=== PATIENT | male | born 1960 | race Caucasian/White ===

== ENCOUNTER 2023-03-20 09:21 | Inpatient (IN) | payer MEDICARE, SELFPAY ==
[2023-03-15 08:07] VITALS: BMI 32.0
[2023-03-20] VITALS (10 sets, daily range): BP systolic 125–166; BP diastolic 69–99; PULSE 68–97; RESP 10–19; TEMP 36.2–36.4; O2SAT 92–100; BMI 29.2
[2023-03-20] MEDS: LACTATED RINGERS 1,000 ML 42 ML IV ×2 (10:09→13:00)
[2023-03-20] MEDS: ACETAMINOPHEN 325 MG TABLET 975 MG PO (10:13)
[2023-03-20] MEDS: GABAPENTIN 300 MG CAPSULE PO (10:13)
--- NOTE | 2023-03-20 10:46 | PM.PREOP ---
Pre-operative Note COVID-19 Criteria for continued procedure: Expected advancement of disease process, Possibility delay results in more complex future surgery or treatment, Increased loss of function, Continuing or worsening of significant or severe pain, Deterioration of the patient's condition or overall health and Delay expected to result in less-positive ultimate med/surg outcome Interval Note History & Physical reviewed/Exam performed by Physician: Yes Changes to H&P: No
--- NOTE | 2023-03-20 11:16 | P.HP_ITS ---
History of Present Illness History of Present Illness Date Patient Seen: 03/20/23 Time Patient Seen: 10:30 Date of Onset of Symptoms: 02/24/21 Chief complaint: back pain, leg pain Narrative: Mr. Montesinos is a 62 yo M with chronic pain in his back radiating down his legs. His pain worsened over the last 2 years affecting his right leg more than left. He failed multiple conservative management with worsening pain. After discussing risks and benefits of surgery, patient elected to proceed with L4-S1 TLIF. [facility] Medical History Acid reflux Anxiety Martinez's esophagus COPD (chronic obstructive pulmonary disease) Eczema Hiatal hernia HLD (hyperlipidemia) HTN (hypertension) Pre-diabetes Sciatica Surgical History History of total left knee replacement Hx of knee surgery Hx of laminectomy Social History household members: children Smoking Status: Current every day smoker alcohol intake: former Meds Home Medications and Allergies Home Medications Medication Instructions Recorded Confirmed Type albuterol sulfate 90 mcg/actuation 2 puff inhalation Q4-6H PRN COPD 03/15/23 03/20/23 History aerosol inhaler atorvastatin 40 mg tablet 40 mg PO DAILY 03/15/23 03/20/23 History cyclobenzaprine 5 mg tablet 10 mg PO QAM 03/15/23 03/20/23 History gabapentin 600 mg tablet 600 mg PO DAILY 03/15/23 03/20/23 History hydroxyzine HCl 50 mg tablet 50 mg PO DAILY 03/15/23 03/20/23 History lisinopril 40 mg tablet 40 mg PO DAILY 03/15/23 03/20/23 History metformin 1,000 mg tablet,extended 2,000 mg PO DAILY 03/15/23 03/20/23 History release 24hr metoprolol succinate 100 mg 100 mg PO DAILY 03/15/23 03/20/23 History tablet,extended release 24 hr metoprolol succinate 50 mg 50 mg PO DAILY 03/15/23 03/20/23 History tablet,extended release 24 hr naproxen 500 mg tablet 500 mg PO DAILY 03/15/23 03/20/23 History pantoprazole 40 mg tablet,delayed 40 mg PO DAILY 03/15/23 03/20/23 History release sildenafil 50 mg tablet 100 mg PO DAILY PRN Sexual acitivty 03/15/23 03/20/23 History Allergies Allergy/AdvReac Type Severity Reaction Status Date / Time No Known Drug Allergies Allergy Verified 03/20/23 09:41 Review of Systems Review of Systems ROS: Yes All systems reviewed with the patient and are negative except as otherwise documented Exam Vital Signs (past 8 hours): - 03/20/23 10:08 Temperature 97.6 F Pulse Rate 82 Respiratory Rate 18 Blood Pressure 166/96 H Pulse Oximetry 100 Oxygen Delivery Method Room Air Oxygen Delivery Method Room Air Back/Spine/Pelvis Other: painful ROM, worst pain in lower lumbar with movement Neuro Other: + straight leg raise to RLE, sensibility decreased to bilateral L4, L5 dermatome, motor strength 4/5 in R TA and EHL. DTR 1+ in right LE patella. Assessment & Plan Assessment & Plan narrative: Mr. oMntesinos is here for evaluation of his lumbar. He had three decompression surgeries in the past years ago. He has worsening back pain and leg pain. He has progressive leg weakness. He may benefit from decompression procedure with bilateral laminectomies and total faceceomies at L4-5, L5-S1 level, which will render his L4-5, L5-S1 level unstable and require a fusion procedure at the same time. Risks for surgery include but not limited to bleeding, infection, nerve/dura/bladder/bowel/blood vessel injury, need for additional procedure, even . Patient understands and would like to proceed with surgery. I scheduled him for L4-5, L5-S1 TLIF.
[2023-03-20] MEDS: CEFAZOLIN 2 GM/100 ML PREMIX 100 ML IV ×2 (11:53→20:51)
--- NOTE | 2023-03-20 12:02 | SUR.OPER ---
Prone on spine table, head in foam head support, padded chest and pelvic supports, gel pad at knees, lower legs supported by pillows; nipples, genitalia and toes free of pressure, arms secured on foam padded arm boards at <90 degrees abduction. Tape over blanket at thigh secured to table.
[2023-03-20] MEDS: BUPIVACAINE 0.25% (PF) 30 ML, EPINEPHrine 0.15 MG INJ (12:11)
[2023-03-20] MEDS: BUPIVACAINE LIPOSOME 266 MG/20 ML VIAL INJ (12:11)
--- NOTE | 2023-03-20 15:02 | DI.RAD.S_ITS ---
PROCEDURE: XR LUMBAR SPINE 2-3V INDICATIONS: L4-5, L5-S1 TLIF ROBOT TECHNIQUE: 3 operative views of the lumbar spine were acquired. COMPARISON: None. FINDINGS: 3 operative C-arm views demonstrate posterior lateral martina and pedicle screw fixation and interbody spacer placement at L4 through S1. IMPRESSION: Operative imaging utilized during lumbar fusion surgery. Dictated by: Enrique Hawley M.D. on 03/20/2023 at 15:54 Approved by: Enrique Hawley M.D. on 03/20/2023 at 15:57
--- NOTE | 2023-03-20 15:05 | P.OP_ITS ---
Operative Date/Time/Diagnoses Date of procedure: 03/20/23 Time of procedure: 11:30 Pre-op diagnosis: 1. L4-5, L5-S1 spinal stenosis 2. History of L5-S1 laminectomy with epidural scarring Post-op diagnosis: same Procedure & Clinicians Procedure: 1. L4-5, L5-S1 Postero-lateral and posterior interbody fusion 2. L4-5, L5-S1 interbody cage placement. 3. L4-5, L5-S1 decompressive laminectomy with bilateral facetecomies 4. L4-5, L5-S1 Posterior segmental instrumentation 5. [place] of bone marrow from iliac crest 6. Utilization of microsurgical technique and operating microscope 7. Utilization of robotic assisted navigation Same procedure as scheduled: Yes Indications: Patient has been having chronic back pain and worsening lumbar radiculopathy. Patient failed multiple conservative management with worsening pain weakness and numbness in her lower extremity. Patient has been having difficulty performing activity of daily living. After discussing risks benefits of treatment options, patient elected proceed with surgery. Surgeon: Neelam Sanders Compensation Advisor: Kendra Villavicencio Click Yes if Unassisted: No Anesthesia Type: General Operative Notes Closure Type: primary Specimen(s): none sent Prosthetic devices, grafts, tissues, transplants, or devices: Globus CREO MIS screws, Rise cages Applied: catheter Estimated Blood Loss (mL): 100 Blood products transfused: none Procedure in detail: Patient was seen in the preoperative area. Risks and benefits of the surgery was discussed with the patient. Informed consent was obtained from the patient and placed in the chart. Surgical site was marked. Patient was taken to the operative room. General anesthesia was administered. Prophylactic antibiotic was given to the patient less than 30 min before the incision was made. Patient was placed into a prone position on the Griffin table. Patient's back was then prepped and draped in the sterile fashion. Time-out was performed at this time. After patient was prepped and draped, patient's PSIS was palpated and marked bilaterally. Small 1 cm incision was made over the PSIS for placement of the reference probes. Two trocar was placed into the PSIS 1 on each side. The reference probe was attached to the trocar of the reference apparatus. At this time the C-arm imaging was used to confirm AP and lateral of L4-L5, L5- S1 vertebrae and merged the C-arm imaging using the [employer] robotic navigation system with the CT of the lumbar spine. After successful merging was completed and confirmed, skin marker was used to jerrica out the skin incision using the [employer] robotic arm. Bilateral incision was made at this time. Pre templated trajectory was used and guided using the [employer] robotic navigation system for bilateral L4, L5, S1 pedicle screw placement. This was done by using the robotic arm to guide the high-speed bur to make a cortical entry point. Next a drill was placed also using the robotic arm and guided using the navigation system drilling partially through bilateral L4, L5 and S1 pedicles. Next L4, L5, S1 pedicle screws it was pre templated and measured was placed onto the power class c driver and inserted into the pedicles bilaterally. After all 6 screws were placed C-arm imaging was taken of both AP and lateral to confirm the placement. Excellent placement of the screws were confirmed and a matched precisely with the pre planned screw placement using the navigation system. MARs retractor was inserted using Seatwaveivation guidence. Globus MARS retractors was placed inside the incision and docked onto the L4 and L5 lamina. Using microsurgical technique and operating microscope, a L4, L5 laminectomy and L4-5, L5-S1 facetectomy was performed using a Kerrison rongeur. The laminectomy and facetectomy was performed in order to decompress patient's cauda equina as well as the nerve roots exiting at the L4-5, L5-S1 level. Patient was found have severe lateral recess and neural foramen stenosis which was fully decompressed after the laminectomy facetectomy. More than 75% of the facets were removed during the process of decompression rendering L4-5, L5-S1 level grossly unstable and required a fusion procedure at the same time. The disc space at L4-5, L5-S1 was identified, and a total diskectomy was performed at L4-5, L5-S1 level. The endplates were decorticated using a rasp and shaver. The total diskectomy and decortication was performed at L4-5, L5-S1 level in order to to accomplish a L4- 5, L5-S1 fusion. The local bone from the laminectomy and facetectomy was saved for local bone grafting. After the total diskectomy and decortication was completed, Trifecta bone graft material was combined with local bone that was harvested earlier. At this time, a separate skin is incision was made over the iliac crest. A Jamshidi needle was inserted into the iliac crest through a separate skin incision. 5 cc of bone marrow aspiration was obtained through the separate skin incision using a Jamshidi needle from the iliac crest. The bone marrow aspiration was combined with local bone and the Trifecta bone grafting material. The bone grafting material was placed into the L4-5, L5-S1 interbody space along with a expandable cage. The cage was expanded to its maximum height using the torque limiting screwdriver. The disc preparation as well as the cage insertion were also performed under navigation guidance. After the cage was placed, AP and lateral C-arm imaging was taken to confirm placement of the cage and excellent position was confirmed. Globus MARS retractor was inserted and docked onto the L4-5, L5-S1 posterolateral gutter on the right side. Using the power drill, posterior- lateral decortication was performed at L4-5, L5-S1 level until bleeding cortical bone was identified. The remaining bone grafting material was placed into the L4 -5, L5-S1 posterior lateral gutter he order to accomplish posterolateral fusion at the L4-5, L5-S1 level. At this time the tulips were attached to the L4, L5, S1 pedicle screw shanks. After measuring the length of the rods, they were inserted into the tulips of the pedicle screws and locked in place using locking caps and torque limiting screwdriver bilaterally. Total 6 caps and 2 titanium rods was used in order to complete the posterior instrumentation construct. After all the hardware was placed, and confirmed with AP and lateral C-arm imaging, the wound was then irrigated with sterile normal saline and packed with Ray-Robert gauze for 3 min to accomplish hemostasis. After the gauze was removed the deep fascia was closed with #1 Vicryl suture. The subcutaneous layer was closed with 2-0 Vicryl. The skin was closed with skin david. Patient tolerated the procedure well. There were no complications. Neuro monitoring system was used to monitor patient's neurologic status throughout entire procedure. There was no disturbance of the neural monitoring signals throughout the case. The Operation could not have been safely performed without compromising the technical result or length of the procedure, without the assistance of a skilled surgical product sales consultant. The surgical product sales consultant was medically necessary for proper positioning, retraction and manipulation of instruments, proper exposure, surgical preparation, and manipulation of tissue. Complications: none Post-operative Condition: stable Disposition: PACU Plan for aftercare: Admit to inpatient hospital
[2023-03-20] MEDS: ONDANSETRON 4 MG/2 ML INJ IV (15:47)
[2023-03-20] MEDS: ALBUTEROL 2.5 MG/3 ML NEB (ADULT) INH (15:47)
[2023-03-20] MEDS: hydrOXYzine pamoate 25 MG CAPSULE 50 MG PO (15:47)
[2023-03-20] MEDS: OXYCODONE IR 5 MG TABLET PO (15:48)
[2023-03-20] MEDS: LACTATED RINGERS 1,000 ML 125 ML IV (16:43)
--- NOTE | 2023-03-20 20:16 | PC.NURSE ---
Addendum entered by Delvis Finn R.N. 03/20/23 22:12: Pt found twisting back, bending over to grab dropped objects from floor. This Rn and float RN educated patient on lumbar surgery precautions. Pt continues to twist and bend. Pt has verbalized multiple times his frustrations with policies and 'unable to be his own boss'. Original Note: 2009: Patient stating he wants to go outside to smoke a cigarette, patient advised of hospital policy on this. sizing machine tender ortho dr. Horowitz called and made aware of situation, new order for nicotine patch placed.
[2023-03-20] MEDS: hydrOXYzine pamoate 25 MG CAPSULE PO (20:49)
[2023-03-20] MEDS: DOCUSATE 100 MG CAPSULE PO (20:50)
[2023-03-20] MEDS: SENNOSIDES 8.6 MG TABLET 17.2 MG PO (20:50)
[2023-03-20] MEDS: NICOTINE 21 MG PATCH TOP (20:51)
[2023-03-20] MEDS: OXYCODONE IR 10 MG TABLET PO (22:54)
[2023-03-21] VITALS (11 sets, daily range): BP systolic 109–152; BP diastolic 50–78; PULSE 78–93; RESP 17–23; TEMP 36.2–36.7; O2SAT 94–98
[2023-03-21] MEDS: LACTATED RINGERS 1,000 ML 125 ML IV (01:06)
[2023-03-21] MEDS: HYDROMORPHONE 0.5 MG INJ IV ×3 (01:10→21:16)
[2023-03-21] MEDS: OXYCODONE IR 10 MG TABLET PO ×6 (03:45→19:02)
[2023-03-21] MEDS: CEFAZOLIN 2 GM/100 ML PREMIX 100 ML IV (03:45)
[2023-03-21 05:16] LABS: Hematocrit 31.9 % (41-53); Hemoglobin 10.7 g/dL (13.5-17.5)
[2023-03-21] MEDS: ACETAMINOPHEN 325 MG TABLET 650 MG PO ×3 (07:22→19:03)
[2023-03-21] MEDS: hydrOXYzine pamoate 25 MG CAPSULE PO ×3 (07:24→19:02)
[2023-03-21] MEDS: polyethylene glycoL 3350 17 GM POWD.PACK PO (08:48)
[2023-03-21] MEDS: METOPROLOL ER 50 MG TABLET 150 MG PO (08:48)
[2023-03-21] MEDS: hydrOXYzine pamoate 25 MG CAPSULE 50 MG PO (08:48)
[2023-03-21] MEDS: MAGNESIUM HYDROXIDE 30 ML UDC PO (08:48)
[2023-03-21] MEDS: GABAPENTIN 600 MG TABLET PO (08:49)
[2023-03-21] MEDS: lisinopriL 20 MG TABLET 40 MG PO (08:49)
[2023-03-21] MEDS: DOCUSATE 100 MG CAPSULE PO ×2 (08:49→20:57)
[2023-03-21] MEDS: METFORMIN XR 500 MG TABLET 2000 MG PO (08:50)
[2023-03-21] MEDS: CYCLOBENZAPRINE 10 MG TABLET PO (08:50)
[2023-03-21] MEDS: PANTOPRAZOLE DR 40 MG TABLET PO (08:50)
[2023-03-21] MEDS: ATORVASTATIN 20 MG TABLET 40 MG PO (08:50)
--- NOTE | 2023-03-21 09:11 | PT-IP ANOTE ---
Pt eating breakfast at 9:11am, pt requests PT return later in the day. PT will return as time allows.
--- NOTE | 2023-03-21 09:18 | PM.PNPO.1 ---
Subjective Subjective Interval history: Patient postoperative day 1. Of lumbar spine surgery. Patient is complaining of postsurgical pain but it is well controlled with his medication. Has yet to get up with physical therapy today. But he is sitting comfortably in a chair having breakfast. Exam Vital Signs (past 8 hours): - 03/21/23 01:57 03/21/23 06:25 03/21/23 07:42 Temperature 97.2 F L 97.7 F Pulse Rate 93 H 93 H Respiratory Rate 19 17 Blood Pressure 139/78 143/76 H Pulse Oximetry 96 96 Oxygen Delivery Method Nasal Cannula Oxygen Flow Rate 2 3 03/21/23 07:42 03/21/23 08:48 03/21/23 08:49 Temperature Pulse Rate 93 H 93 H Respiratory Rate Blood Pressure 143/76 H 143/76 H Pulse Oximetry 95 Oxygen Delivery Method Nasal Cannula Oxygen Flow Rate 3 03/21/23 09:03 Temperature 97.9 F Pulse Rate 78 Respiratory Rate 17 Blood Pressure 152/75 H Pulse Oximetry 97 Oxygen Delivery Method Oxygen Flow Rate 0 Fraction of Inspired Oxygen 28 Oxygen Delivery Method Nasal Cannula Oxygen Flow Rate 0 Narrative Exam Narrative: Patient's dressing is clean and dry. Has positive dorsiflexion and plantar flexion of his toes and ankles. Palpable pedal pulses. Nontender to the posterior aspect of both calves. Objective Labs 03/21/23 04:56 Labs: Laboratory Results - last 24 hr 03/21/23 04:56 Hgb 10.7 L Hct 31.9 L PFSH Medical History Acid reflux Anxiety Martinez's esophagus COPD (chronic obstructive pulmonary disease) Eczema Hiatal hernia HLD (hyperlipidemia) HTN (hypertension) Pre-diabetes Sciatica Surgical History History of total left knee replacement Hx of knee surgery Hx of laminectomy Social History household members: children Smoking Status: Current every day smoker alcohol intake: former Assessment & Plan Post-op Postoperative Procedures: Procedures Operation Date: 03/20/23 10:45 Actual Procedure Side Surgeon p L4-5, L5-S1 TLIF w. posterior instrumentation -Robot Neelam Sanders MD Postoperative day: 1 Postoperative status: doing well Postoperative plan narrative: Patient will work with physical therapy. Plan on discharge home in the next 1-2 days. Quality VTE Deep Vein Thrombosis/Pulmonary Embolism Present on Admission: No
[2023-03-21] MEDS: ALBUTEROL 2.5 MG/3 ML NEB (ADULT) INH (10:18)
--- NOTE | 2023-03-21 10:43 | PT.IIE ---
Current Diagnoses Other spondylosis with radiculopathy, lumbar region (03/20/23) Postlaminectomy syndrome, not elsewhere classified (03/20/23) Surgery Performed Operation Date: 03/20/23 10:45 Actual Procedures p L4-5, L5-S1 TLIF w. posterior instrumentation -Robot - Neelam Sanders MD Surgical History (Last Reviewed 03/20/23 @ 11:19 by Neelam Sanders MD) History of total left knee replacement Hx of knee surgery Hx of laminectomy Medical History (Last Reviewed 03/20/23 @ 11:19 by Neelam Sanders MD) Acid reflux Anxiety Martinez's esophagus COPD (chronic obstructive pulmonary disease) Eczema Hiatal hernia HLD (hyperlipidemia) HTN (hypertension) Pre-diabetes Sciatica Physical Therapy Inpatient Evaluation/Re-Eval M1 PT/OT-IP Prior Functional Status Start: 03/21/23 08:48 Freq: NEEDED Status: Active Protocol: Document 03/21/23 10:10 AMB (Rec: 03/21/23 10:40 AMB [id number]) Medical Review Prior Functional Status Medical History Reviewed Yes Mobility and Gait Ambulates with SPC due to poor balance Social History Household Members children Living Arrangements House Number of Floors (Floors) One Floor Additional Social History Comment Lives alone, has a girlfriend and adult son who do not live with him M2 PT-IP Current Condition Start: 03/21/23 08:48 Freq: NEEDED Status: Active Protocol: Document 03/21/23 10:10 AMB (Rec: 03/21/23 10:40 AMB [id number]) Physical Therapy Current Condition Current Condition Evaluation Date 03/21/23 Treatment Diagnosis L45, L5S1 Onset Date 03/20/23 M3 PT-IP Subjective Start: 03/21/23 08:48 Freq: NEEDED Status: Active Protocol: Document 03/21/23 10:10 AMB (Rec: 03/21/23 10:40 AMB [id number]) Subjective Physical Therapy Visit Type Type Initial Evaluation Visit Start Time 09:30 Visit Stop Time 10:00 Total Visit Minutes 30 Physical Therapy Visit Comments Patient Comments I don't know why you guys are in such a hurry to get me up I don't want to leave until tomorrow, I don't have anyone to pick me up until tomorrow Therapy Pain Assessment Pain When Pain Assessed At Rest Pain Present Pain Present Pain Reported Location back Intensity 8 Scale Used Numeric (0 - 10) Pain Management Techniques Apply Cold,Timing of Activity with Medications M4 PT-IP Mobility and Gait Start: 03/21/23 08:48 Freq: NEEDED Status: Active Protocol: Document 03/21/23 10:10 AMB (Rec: 03/21/23 10:40 AMB [id number]) PT-Transfer Assessment Sit to and From Stand Sit to and from Stand Contact Guard Assistance,1 Person Assistance,Use of Upper Extremities Equipment Transfer Assistive Device Gait Belt,Front Wheeled Walker Transfers Transfer Destination Chair Transfer Technique Stand Step Pivot Transfer Ability Level of Assist Contact Guard Assistance,1 Person Assistance,Use of Upper Extremities Comments Mobility Comments Doroteo was sitting in his recliner when PT entered room. He had slept there overnight as the bed was too painful. He was able to stand with SBA and heavy UE support on bilateral armrests to a FWW. He does not have a FWW at home , he had been ambulating with SPC. Pt dislikes gaitbelt but willing to have it up high well above surgery site. Gait Assessment Gait Gait Assistance Required: Contact Guard Assist,1 Person Assist Distance (Feet) 15 Assistive Devices Assistive Device Front Wheeled Walker Gait Deviations General Gait Pattern Antalgic,Decreased Stride Length,Decreased Feet Clearance,Step-to Gait,Wide Based Gait Factors Limiting Gait Function Factors Limiting Gait Function Decreased Activity Tolerance, Decreased Sensation,Decreased Strength,Pain,Poor Balance Comments Gait Comments Doroteo ambulated around his bed with FWW and SBA. Small shuffling steps. Pain increased after about 7' so returned back to sitting on his bed for a total of 15'. Heavy UE support on FWW. Stair Climbing Assessment Comments Stair Climbing Comments not performed, pt does not have stairs at home M5 PT-IP Objective Assessments Start: 03/21/23 08:48 Freq: NEEDED Status: Active Protocol: Document 03/21/23 10:10 AMB (Rec: 03/21/23 10:40 AMB [id number]) Orientation Orientation/Cognition Level of Alertness Alert Gross Range of Motion Upper Extremity ROM Assessment Within Functional Limits Strength Upper Extremity Strength Assessment Within Functional Limits Lower Extremity Strength Hip 4 Knee 4 Ankle 3 Comments Strength Comments Limited active ankle dorsiflexion bilaterally Sensation Assessment Comments Sensation Comments Pt reports bilateral foot numbness that was present before surgery but reports subjectively worsened since surgery M7 PT-IP Assessment and Plan Start: 03/21/23 08:48 Freq: NEEDED Status: Active Protocol: Document 03/21/23 10:10 AMB (Rec: 03/21/23 10:40 AMB [id number]) PT Summary Assessment and Plan Potential Rehabilitation Potential Fair Status of Condition at Evaluation Stable Summary Impairments Pain,Strength,Transfers,Gait Assessment Summary Doroteo had L4L5 and L5S1 fusion surgery on 03/20. He reports high levels of pain despite recent medication. He lives alone in a single level home. PLOF was ambulating with SPC, does not have FWW at home. Nursing reports pt with difficulty adhering to post surgical precautions, was twisting in bed. Bed mobility not visualized by PT as patient was sitting in chair and quite hesitant to be evaluated by PT. Doroteo was willing to get up and walk around bed, but had short shuffling steps with FWW and pain limited him to 15' distance. He needed CGA with transfers and gait. He will benefit from continued PT services while he is admitted. He was give the option of PT ordering a FWW or he can have family get one, he elected to have his son get him a FWW. Goals Bed Mobility Goal Standby Assistance Transfer Goal Standby Assistance Gait Goal Standby Assistance Gait Distance 150 Days to Meet Goals 5 Frequency of Treatment Frequency Of Treatment Twice a Day Treatment Plan Physical Therapy Treatment Plan Bed Mobility Training,Transfer Training,Gait Training Other Recommendations and Next Treatment Bed mobility, gait tolerance ( Focus increase distance) Recommendations To Nursing Amount of Assist Needed 1 Person Assist Discharge Recommendations PT Discharge Recommendations Home with Assistance Equipment Needed for Home Before FWW Discharge Transportation Needs at Discharge Private Vehicle
--- NOTE | 2023-03-21 11:53 | CM.DANOTE ---
Initial DCP Assessment Note Pt is a 62 yo male, resident of [place], now POD#[address] Sanders PCP: Shankar Hale Payer: [facility] Reviewed chart, pt discussed in multidisciplinary rounds this morning. Therapy has cleared pt for return home w/family to assist and pt has planned for home Met w/patient to introduce self and role. Patient would like a HH RN to visit him upon discharge. When discussing home health services, learned that patient also wanted to keep his outpatient PT appointment so educated patient that he can not receive HH RN and attend outpatient PT (because he would not be homebound) Patient frustrated, decided to decline HH RN so that he could keep his outpatient PT appointment No barriers identified at this time to patient's safe discharge home w/family to assist; close outpatient f/u recommended. ALKA Daniel Discharge Planning/Care Management CM Discharge Assessment Start: 03/21/23 11:50 Freq: Status: Active Protocol: Document 03/21/23 11:50 JEANETTE (Rec: 03/21/23 11:52 JEANETTE [id number]) Discharge Planning Assessment Assigned Home Support Worker ALKA Wiseman DPOA/Assigned Designee Name Pedro (son) Contact Information [phone] Advance Directives? Yes Advance Directives on File No History Provided By Patient,Medical Record Prior Living Arrangements House Household Members children Type of transporation used prior to Drives own vehicle admit Independent with ADL's Yes Is patient alert and oriented? Yes Patient/Family Preference OP PT Therapy Barriers to Discharge No Discharge Plan Home Transportation Arrangement Family Referrals Initiated None needed
--- NOTE | 2023-03-21 13:40 | PT.IPTN ---
Current Diagnoses Other spondylosis with radiculopathy, lumbar region (03/20/23) Postlaminectomy syndrome, not elsewhere classified (03/20/23) Surgery Performed Operation Date: 03/20/23 10:45 Actual Procedures p L4-5, L5-S1 TLIF w. posterior instrumentation -Robot - Neelam Sanders MD Physical Therapy Treatment Note M2 PT-IP Current Condition Start: 03/21/23 08:48 Freq: NEEDED Status: Active Protocol: Document 03/21/23 10:10 AMB (Rec: 03/21/23 10:40 AMB [id number]) Physical Therapy Current Condition Current Condition Evaluation Date 03/21/23 Treatment Diagnosis L45, L5S1 Onset Date 03/20/23 M3 PT-IP Subjective Start: 03/21/23 08:48 Freq: NEEDED Status: Active Protocol: Document 03/21/23 14:05 TS (Rec: 03/21/23 14:26 TS [id number]) Subjective Physical Therapy Visit Type Type Treatment Note Visit Start Time 13:40 Visit Stop Time 14:05 Total Visit Minutes 25 Number of TURNTABLE WORKER Visits 1 Physical Therapy Visit Comments Patient Comments Pt is not very interested in working with therapy and doesn 't feel like he needs it. He reports he wants different pain medication because he doesn't feel like what he is taking is woking. Also states how he is tired of how often people come into his room and is tired of being asked the same questions over and over. He became agreeable to PT begrudgingly. Therapy Pain Assessment Pain When Pain Assessed During Mobility Pain Present Pain Present Pain Reported M4 PT-IP Mobility and Gait Start: 03/21/23 08:48 Freq: NEEDED Status: Active Protocol: Document 03/21/23 14:05 TS (Rec: 03/21/23 14:26 TS [id number]) PT-Transfer Assessment Sit to and From Stand Sit to and from Stand Standby Assistance Equipment Transfer Assistive Device Gait Belt,Front Wheeled Walker Comments Mobility Comments Sit to stand from chair x1 SBA with no AD, pt is impulsive to stand before therapist is ready. In standing pt reaches for FWW for balance for donning of belt. He ambulated ~150 SBA with step thru gait, reports some dizziness, no buckling or LOB. Attempted to have pt performed bed mobility , was not agreeable, stated it's a waste of time. Pt was left in chair with chair alarm on, RN notified. Gait Assessment Gait Gait Assistance Required: Standby Assistance Distance (Feet) 150 Assistive Devices Assistive Device Front Wheeled Walker Gait Deviations General Gait Pattern Antalgic,Decreased Stride Length,Decreased Feet Clearance,Step-to Gait,Wide Based Gait Factors Limiting Gait Function Factors Limiting Gait Function Decreased Activity Tolerance, Decreased Sensation,Decreased Strength,Pain,Poor Balance Comments Gait Comments See mobility comments. Stair Climbing Assessment Comments Stair Climbing Comments not performed, pt does not have stairs at home M5 PT-IP Objective Assessments Start: 03/21/23 08:48 Freq: NEEDED Status: Active Protocol: Document 03/21/23 10:10 AMB (Rec: 03/21/23 10:40 AMB [id number]) Orientation Orientation/Cognition Level of Alertness Alert Gross Range of Motion Upper Extremity ROM Assessment Within Functional Limits Strength Upper Extremity Strength Assessment Within Functional Limits Lower Extremity Strength Hip 4 Knee 4 Ankle 3 Comments Strength Comments Limited active ankle dorsiflexion bilaterally Sensation Assessment Comments Sensation Comments Pt reports bilateral foot numbness that was present before surgery but reports subjectively worsened since surgery M7 PT-IP Assessment and Plan Start: 03/21/23 08:48 Freq: NEEDED Status: Active Protocol: Document 03/21/23 14:05 TS (Rec: 03/21/23 14:26 TS [id number]) PT Summary Assessment and Plan Potential Rehabilitation Potential Fair Summary Impairments Pain,Strength,Transfers,Gait Progress Towards Goals Progressing Toward Goals Assessment Summary Doroteo is doing well with his mobility. He is SBA with sit to stands with no AD, once in standing reaches for FWW for balance. He progressed his ambulation to ~150' SBA with FWW, no buckling or LOB but reports some dizziness. Attempted to have pt perform bed mobility but stated it's a waste of time, I can do it. Pt does not have FWW currently but says he can get one for use at home. PT is recommending return homw with assist. Goals Bed Mobility Goal Standby Assistance Transfer Goal Standby Assistance Gait Goal Standby Assistance Gait Distance 150 Days to Meet Goals 5 Frequency of Treatment Frequency Of Treatment Twice a Day Treatment Plan Physical Therapy Treatment Plan Bed Mobility Training,Transfer Training,Gait Training Other Recommendations and Next Treatment Bed mobility, gait tolerance ( Focus increase distance) Recommendations To Nursing Amount of Assist Needed Standby Assistance Discharge Recommendations PT Discharge Recommendations Home with Assistance Equipment Needed for Home Before FWW Discharge Transportation Needs at Discharge Private Vehicle
--- NOTE | 2023-03-21 14:11 | OT.IP.EVAL ---
Current Diagnoses Other spondylosis with radiculopathy, lumbar region (03/20/23) Postlaminectomy syndrome, not elsewhere classified (03/20/23) Surgery Performed Operation Date: 03/20/23 10:45 Actual Procedures p L4-5, L5-S1 TLIF w. posterior instrumentation -Robot - Neelam Sanders MD Past Medical History (Last Reviewed 03/20/23 @ 11:19 by Neelam Sanders MD) Acid reflux Anxiety Martinez's esophagus COPD (chronic obstructive pulmonary disease) Eczema Hiatal hernia HLD (hyperlipidemia) HTN (hypertension) Pre-diabetes Sciatica Surgical History (Last Reviewed 03/20/23 @ 11:19 by Neelam Sanders MD) History of total left knee replacement Hx of knee surgery Hx of laminectomy Occupational Therapy Inpatient Evaluation/Re-Eval M1 PT/OT-IP Prior Functional Status Start: 03/21/23 13:52 Freq: NEEDED Status: Active Protocol: Document 03/21/23 12:04 [facility] (Rec: 03/21/23 14:11 [facility] [id number]) Medical Review Prior Functional Status Medical History Reviewed Yes Communication independent Mobility and Gait Ambulates with SPC due to poor balance Activities of Daily Living and IADL's Pt has pain during ADL and IADL needs. Social History Household Members children Living Arrangements House Number of Floors (Floors) One Floor Home Equipment Straight Cane Additional Social History Comment Lives alone and his girlfriend can stay to help if needed. Pt told PT that his son can picking tech a FWW for him. M2 OT-IP Current Condition Start: 03/21/23 13:52 Freq: Status: Active Protocol: Document 03/21/23 12:04 [facility] (Rec: 03/21/23 14:11 [facility] [id number]) Occupational Therapy Current Condition Current Condition Evaluation Date 03/21/23 Treatment Diagnosis S/P L4-5, L5-S1 TLIF Diagnosis Onset Date 03/20/23 Post Operative Precautions Lumbar Precautions Log Roll,No Twisting,Limit Bending,Lifting Restriction of 10 lbs,Gait Belt above Incisional Area M3 OT- IP Subjective and Pain Start: 03/21/23 13:52 Freq: Status: Active Protocol: Document 03/21/23 12:04 [facility] (Rec: 03/21/23 14:11 [facility] [id number]) OT- Subjective Occupational Therapy Visit Type Type Initial Evaluation Visit Start Time 11:35 Visit Stop Time 12:04 Total Visit Minutes 29 Occupational Therapy Visit Comments Patient Comments Pt agreed to get up to brush his teeth. Patient/Caregiver Goals To go home. OT Pain Assessment Pain When Pain Assessed During Mobility Pain Present Pain Present Pain Reported Location back Intensity 9 Scale Used Numeric (0 - 10) M4 OT- IP ADL's Start: 03/21/23 13:52 Freq: Status: Active Protocol: Document 03/21/23 12:04 [facility] (Rec: 03/21/23 14:11 [facility] [id number]) OT [id number] General Evaluation Self-Feeding Ability Independent OT ADL-Grooming Comments OT Grooming Comments Pt states to go later. OT ADL-Oral Care Comments Oral Care Comments Educated pt to hinge at his hips or spit into a cup to best follow his back precautions. OT ADL-Dressing Comments OT Dressing Comments Pt not wanting to perform and states that is already is able to comfortably cross his leg over to do his LB dressing needs. OT ADL-Toileting Comments OT Toileting Comments Not performed. Educated to stand to wipe , use of wipes or that a toilet paper aid would be helpful for his hygiene needs. OT ADL-Bathing Comments OT Bathing Comments Educated best to sit for showering and have his girlfriend to assist him. M5 OT- IP IADL's Start: 03/21/23 13:52 Freq: Status: Active Protocol: Document 03/21/23 12:04 [facility] (Rec: 03/21/23 14:11 [facility] [id number]) OT-Instrumental Activities of Daily Living Deficits IADL Deficits Identified Deficits Home Safety Awareness Awareness of Need for Assistance at Home Decreased Awareness Home Safety Comments Pt is insistent in his care. Pt states will have his girlfriend to stay with him to assist if needed. M6 OT- IP Functional Cognition Start: 03/21/23 13:52 Freq: Status: Active Protocol: Document 03/21/23 12:04 [facility] (Rec: 03/21/23 14:11 [facility] [id number]) Cognitive Factors Limiting Selfcare Function Cognitive Ability Level of Alertness Alert Patient Orientation Name,Place,Situation Attention Span Ability Capable of Focused Attention, Capable of Sustained Attention Ability to Follow Commands Able to Follow One Step Commands Safety Awareness Decreased Ability to Apply Precautions Cognitive Comments Cognitive Assessment Comments Pt able to follow commands but needing reminders to follow his back precautions. Pt is a little insistent for his care. OT- Vision and Hearing OT- Vision Assessment Visual Acuity Glasses For Reading M7 OT- IP Mobility and Balance Start: 03/21/23 13:52 Freq: Status: Active Protocol: Document 03/21/23 12:04 [facility] (Rec: 03/21/23 14:11 [facility] [id number]) OT-Transfer Assessment Sit to and From Stand Sit to and from Stand Standby Assistance Transfers Transfer Ability Standby Assistance Technique Transfer Destination Chair Transfer Technique Stand Step Pivot Devices Transfer Assistive Devices Gait Belt,Front Wheeled Walker Comments Mobility Comments Pt is SBA with sit to stand to FWW and in the room for ambulation. OT- Balance Assessment Sitting Balance and Reactions Static Sitting Balance Ability Good Dynamic Sitting Balance Ability Good Standing Balance and Reactions Static Standing Balance Ability Good Dynamic Standing Balance Ability Good M9 OT- IP Assessment and Plan Start: 03/21/23 13:52 Freq: Status: Active Protocol: Document 03/21/23 12:04 [facility] (Rec: 03/21/23 14:11 [facility] [id number]) OT Summary Assessment and Plan Potential Rehabilitation Potential Good Analytic Complexity at Evaluation Low Summary OT Impairments Pain,Balance,Functional Mobility,Dressing,Toileting, Bathing,Toilet Transfers, Shower Transfers Progress Towards Goals Progressing Toward Goals Assessment Summary Pt low complexity and main barrier are pain, a bit insistent on his care and therefore needing reminders to incorporate his precautions during ADl and mobility needs. Pt to go home when medically stable. Pt states his girlfriend can be there to assist. Pt will benefit from getting a FWW. Goals Dressing Goal Independent Toileting Goal Independent Bathing Goal Independent Toilet Transfer Goal Independent Shower Transfer Goal Independent Days to Meet Goals 5 Frequency of Treatment Frequency Of Treatment Once a Day Treatment Plan OT Treatment Plan ADL Training,Functional Mobility,Patient/Family Education,Discharge Planning Discharge Recommendations OT Discharge Recommendations Home with Assistance Transportation Needs at Discharge Private Vehicle
[2023-03-21] MEDS: SENNOSIDES 8.6 MG TABLET 17.2 MG PO (20:57)
[2023-03-21] MEDS: NICOTINE 21 MG PATCH TOP (21:33)
[2023-03-22] VITALS (11 sets, daily range): BP systolic 97–127; BP diastolic 51–64; PULSE 76–87; RESP 18–20; TEMP 36.6–37.1; O2SAT 92–95
[2023-03-22] MEDS: OXYCODONE IR 10 MG TABLET PO ×4 (00:05→15:41)
[2023-03-22] MEDS: ONDANSETRON 4 MG/2 ML INJ IV ×2 (00:30→16:10)
--- NOTE | 2023-03-22 02:36 | PC.NURSE ---
NOC Shift Note- Patient refusing chair alarm and refusing to call for assistance. Patient states im not a baby, I will do what I want. tried to talk with patient about safety and about back precautions and need to call for assistance. Patient became increasingly aggitated and louder stating Ill do what I want. Patient took off chair alarm himself and was found walking down the [place] with his walker and with the ramos bag dragging behind him on the floor. Patient refused to go back to his room and continued down the [place]. Patient ended up needing a wheelchair to get back to his room mdue to being unable to make it back on his own. Patient mostly alert and oriented, occasion periodds of confusion noted. patient had to be reminded 3 time that he was in the hospital and not at home. Patient reoriented easily. Found patient in room at 2100 walking aroub[address] room with walker and ramos bag dragging on floor behind him. patient reminded how to hook bag to walker. when demonstating to patient ramos was noted to not be secured to leg with anchor sticker, tubing was just pulling. After talking with patient it was decided to removed ramos for patients safety due to impulsive behaviors. Ramos removed without issue.
--- NOTE | 2023-03-22 07:40 | PM.DS.1 ---
History of Present Illness History of Present Illness Date Patient Seen: 03/22/23 Time Patient Seen: 07:41 Chief complaint: Back pain Narrative: Patient resting in wheelchair. Patient requested per nurse report. Pain [id number]. No fever or chills. Discharge Providers Provider Date of admission: 03/20/23 09:21 Discharge Date: 03/22/23 Primary care physician: Shankar Hale PA-C Consults: 03/20/23 16:30 Consult to Occupational Therapy Evaluate & Treat Comment: Physician Instructions: Evaluate and treat Consult to Physical Therapy Evaluate & Treat Comment: Physician Instructions: Evaluate and Treat Discharge provider: Marco A Tovar PA-C Summary Hospital Course Discharge Diagnosis: 1. L4-5, L5-S1 spinal stenosis 2. History of L5-S1 laminectomy with epidural scarring Hospital Course: 1. L4-5, L5-S1 Postero-lateral and posterior interbody fusion 2. L4-5, L5-S1 interbody cage placement. 3. L4-5, L5-S1 decompressive laminectomy with bilateral facetecomies 4. L4-5, L5-S1 Posterior segmental instrumentation 5. [place] of bone marrow from iliac crest 6. Utilization of microsurgical technique and operating microscope 7. Utilization of robotic assisted navigation Same procedure as scheduled: Yes Indications: Patient has been having chronic back pain and worsening lumbar radiculopathy. Patient failed multiple conservative management with worsening pain weakness and numbness in her lower extremity.? Patient has been having difficulty performing activity of daily living.? After discussing risks benefits of treatment options, patient elected proceed with surgery. Surgeon: Neelam Sanders Legal Billing Specialist: Kendra Villavicencio Click Yes if Unassisted: No Anesthesia Type: General Operative Notes Closure Type: primary Specimen(s): none sent Prosthetic devices, grafts, tissues, transplants, or devices: Globus CREO MIS screws, Rise cages Applied: catheter Estimated Blood Loss (mL): 100 Blood products transfused: none Patient admitted to the hospital for the above-mentioned procedure. Patient consented to the same. Patient underwent L4-L5, L5-S1 fusion March 20, 2023. Patient back in his room recovering well as in stable condition. Patient will be discharged home today in stable condition. Status at Discharge Cognitive/behavioral status at discharge: at baseline, oriented Functional status at discharge: uses cane/walker Overall status at discharge: patient is progressing back to baseline Exam Vital Signs (past 8 hours): - 07/05/23 04:58 03/22/23 07:16 Temperature 98.8 F Pulse Rate 80 Respiratory Rate 18 Blood Pressure 116/57 L Pulse Oximetry 93 95 Oxygen Delivery Method Room Air Oxygen Flow Rate 0 0 Fraction of Inspired Oxygen 28 Oxygen Delivery Method Room Air Oxygen Flow Rate 0 Narrative Exam Narrative: 62-year-old male resting in wheelchair at bedside. Motor functions intact bilateral lower extremities. Sensation grossly intact to light touch bilateral lower extremities. Const General: comfortable Nutritional Appearance: well nourished Orientation: alert Resp Effort & Inspection: normal respiratory effort and able to speak in complete sentences Objective Labs 03/21/23 04:56 PFSH Medical History Acid reflux Anxiety Martinez's esophagus COPD (chronic obstructive pulmonary disease) Eczema Hiatal hernia HLD (hyperlipidemia) HTN (hypertension) Pre-diabetes Sciatica Surgical History History of total left knee replacement Hx of knee surgery Hx of laminectomy Social History household members: children Smoking Status: Current every day smoker alcohol intake: former Discharge Assessment & Plan Assessment and Plan Assessment: Patient progressing as expected status post L4-L5, L5-S1 posterolateral and posterior interbody fusion Plan of Treatment: Multimodal pain management Limit bending, twisting, lifting Discharge home today in stable condition Discharge Plan Discharge Plan Patient Disposition: Home Discharge orders & Medications Prescriptions: New acetaminophen 325 mg Tablet 650 mg PO Q6H PRN (Reason: Fever/Mild Pain (1-3)) Qty: 60 0RF docusate sodium 100 mg Capsule 100 mg PO BID Qty: 10 0RF oxycodone 5 mg tablet 5 mg PO Q4H PRN (Reason: pain) Qty: 40 0RF Continued gabapentin 600 mg Tablet 600 mg PO DAILY sildenafil 50 mg Tablet 100 mg PO DAILY PRN (Reason: Sexual acitivty) Rx Instructions: administer 30 minutes to 4 hours before activity metoprolol succinate 50 mg Tablet Extended Release 24 Hr 50 mg PO DAILY metoprolol succinate 100 mg Tablet Extended Release 24 Hr 100 mg PO DAILY hydroxyzine HCl 50 mg Tablet 50 mg PO DAILY lisinopril 40 mg Tablet 40 mg PO DAILY metformin 1,000 mg Tablet Extended Release 24 Hr 2,000 mg PO DAILY albuterol sulfate 90 mcg/actuation Hfa Aerosol Inhaler 2 puff INHALATION Q4-6H PRN (Reason: COPD) atorvastatin 40 mg Tablet 40 mg PO DAILY pantoprazole 40 mg Tablet,Delayed Release (Dr/Ec) 40 mg PO DAILY cyclobenzaprine 5 mg Tablet 10 mg PO QAM Discontinued naproxen 500 mg Tablet 500 mg PO DAILY Follow up/Referrals: Shankar Hale, PADevon [Primary Care Provider] - Neelam Sanders MD [Physician] - (Two weeks as scheduled) Diet/Activity/Treatments Diet: Carb-consistent/Diabetic Activity: Limit bending, twisting, lifting Skin/Wound/Dressing Care Report to your healthcare provider any signs of infection, such as:: chills, fever, night sweats, increased pain, unusual drainage and unusual redness Dressing: Keep dressing clean and dry Visit Report/Discharge Packet Instructions: DI for Prescription Opioid Use, DI for Transforaminal Lumbar Interbody Fusion Stand Alone Forms: Patient Portal/API, Stroke Signs & Symptoms, Surgery Discharge Discharge Data Primary Care Provider: Shankar Hale Quality VTE Deep Vein Thrombosis/Pulmonary Embolism Present on Admission: No
[2023-03-22] MEDS: polyethylene glycoL 3350 17 GM POWD.PACK PO (09:19)
[2023-03-22] MEDS: NICOTINE 21 MG PATCH TOP (09:19)
[2023-03-22] MEDS: METFORMIN XR 500 MG TABLET 2000 MG PO (09:19)
[2023-03-22] MEDS: MAGNESIUM HYDROXIDE 30 ML UDC PO (09:19)
[2023-03-22] MEDS: DOCUSATE 100 MG CAPSULE PO ×2 (09:21→20:33)
[2023-03-22] MEDS: ACETAMINOPHEN 325 MG TABLET 650 MG PO ×2 (09:21→15:41)
[2023-03-22] MEDS: PANTOPRAZOLE DR 40 MG TABLET PO (09:21)
[2023-03-22] MEDS: ATORVASTATIN 20 MG TABLET 40 MG PO (09:21)
[2023-03-22] MEDS: GABAPENTIN 600 MG TABLET PO (09:22)
[2023-03-22] MEDS: METOPROLOL ER 50 MG TABLET 150 MG PO (09:22)
[2023-03-22] MEDS: CYCLOBENZAPRINE 10 MG TABLET PO (09:22)
[2023-03-22] MEDS: LACTATED RINGERS 1,000 ML 125 ML IV (12:18)
[2023-03-22] MEDS: ALBUTEROL 2.5 MG/3 ML NEB (ADULT) INH (12:21)
--- NOTE | 2023-03-22 12:31 | PT-IP ANOTE ---
Pt reports not needing PT at this time, he feels like he is still moving good. Will continue to check on in the afternoon.
[2023-03-22 13:46] LABS: Add Manual Diff / Slide Review NO; Basophils Absolute Auto 100 /uL (0-100); Basophils Percent Auto 0.4 % (0-2); Eosinophils Absolute Auto 100 /uL (0-450); Hematocrit 28.7 % (41-53); Hemoglobin 9.6 g/dL (13.5-17.5); Lymphocytes Absolute Auto 1200 /uL (1100-4500); Lymphocytes Percent Auto 9.5 % (25-40); Mean Corpuscular HGB Conc 33.5 % (30-36); Mean Corpuscular Hemoglobin 31.6 PG (26-34); Mean Corpuscular Volume 94.2 fL (80-100); Monocytes Absolute Auto 1300 /uL (0-900); Monocytes Percent Auto 10.5 % (3-14); Neutrophils Absolute Auto 10100 /uL (1500-7000); Neutrophils Percent Auto 78.6 % (50-75); Platelet Count 189 X10^3/uL (150-400); Red Blood Cell Count 3.05 X10^6/uL (4.5-5.9); Red Cell Distribution Width 14.8 % (11.6-14.8); White Blood Cell Count 12.8 X10^3/uL (4.5-11.0)
[2023-03-22 14:09] LABS: BUN Creatinine Ratio 19.4 (6-22); Blood Urea Nitrogen 24 mg/dL (9-20); Calcium 8.1 mg/dL (8.4-10.2); Carbon Dioxide 29 mmol/L (22-32); Chloride 102 mmol/L (98-107); Estimated Glomerular Filt Rate > 60 mL/min (>60); Glucose 96 mg/dL (80-110); HEMOLYSIS < 15 (0-50); Potassium 4.5 mmol/L (3.4-5.1); Sodium 136 mmol/L (137-145)
--- NOTE | 2023-03-22 14:17 | PT-IP ANOTE ---
Pt is tired and just wants to rest before he goes home. Pt reports he doesn't have anyone picking him up and he is going to drive himself home today. RN was notified.
[2023-03-22 15:47] LABS: Fractionated Inspired Oxygen 0.21; HCO3 ABG 24 mmol/L (23-27); Oxygen Saturation ABG 86 % (95-100); PCO2 ABG 44.7 mmHg (35-45); PO2 ABG 55 mmHg (80-100); TCO2 ABG 25 mmol/L (23-27); pH ABG 7.34 (7.35-7.45)
--- NOTE | 2023-03-22 16:12 | OT.IPNOTE ---
Checked on pt, pt states nauseous and not feeling. Pt's nurse in and states to give pt Zofran. To check on the pt tomorrow.
[2023-03-22] MEDS: SENNOSIDES 8.6 MG TABLET 17.2 MG PO (20:33)
[2023-03-22] MEDS: OXYCODONE IR 5 MG TABLET PO (20:35)
[2023-03-22 22:26] LABS: Appearance Urine UA CLEAR; Bilirubin Urine UA NEGATIVE (NEGATIVE); Color Urine UA YELLOW; Glucose Urine UA NEGATIVE (Negative); Ketones Urine UA NEGATIVE (NEGATIVE); Leukocyte Esterase Urine UA NEGATIVE (NEGATIVE); Nitrite Urine UA NEGATIVE (Negative); Occult Blood Urine UA 1+ (Negative); Protein Urine UA NEGATIVE (Negative); Specific Gravity Urine UA 1.025 (1.000-1.035); Urobilinogen Urine UA 0.2 E.U./dL (0.2); pH Urine UA 5.5 (4.5-8.0)
[2023-03-22 22:48] LABS: RBC Urine 1-5/HPF (0-5/HPF); WBC Urine 1-5/HPF (0-5/HPF)
[2023-03-22 22:49] LABS: Bacteria Urine None Seen; Culture Indicated Urine Cult Not Indicated; Squamous Epithelial Cell Urine None Seen (0-5/HPF)
[2023-03-23] VITALS (13 sets, daily range): BP systolic 109–167; BP diastolic 44–76; PULSE 64–90; RESP 16–20; TEMP 36.2–37.1; O2SAT 90–96
[2023-03-23] MEDS: OXYCODONE IR 5 MG TABLET PO ×5 (03:21→20:58)
--- NOTE | 2023-03-23 07:50 | DI.RAD.S_ITS ---
PROCEDURE: XR CHEST 1V INDICATIONS: hypoxia requiring O2, leukocytosis TECHNIQUE: One view of the chest was acquired. COMPARISON: None. FINDINGS: Surgical changes and devices: None. Lungs and pleura: Lungs are clear. No pleural effusions or pneumothorax. Mediastinum: Mediastinal contours appear normal. Heart size is normal. Bones and chest wall: No suspicious bony lesions. Overlying soft tissues appear unremarkable. IMPRESSION: No evidence acute pulmonary process. Dictated by: Enrique Hawley M.D. on 03/23/2023 at 8:31 Approved by: Enrique Hawley M.D. on 03/23/2023 at 8:31
--- NOTE | 2023-03-23 08:00 | P.PN_ITS ---
Subjective Subjective Date Patient Seen: 03/23/23 Time Patient Seen: 11:00 Interval history: Discharge held yesterday d/t somnolence. Pt on supplemental O2, WBC today somewhat elevated, ABG pO2 55. Spoke w/ Dr Fernandez on hospitalist service; he will order CXR and w/u respiratory insufficiency. On my visit, he is fully awake and alert. C/o squeezing pain in low back. Says he would like to work with PT more but feels like they are being too stringent in their requests with him. I discussed the fact that he may need to go to rehab; he would like to go home with home health. I stressed that he needs to make more progress w/ PT if he wants to go home. C/o urinary retention. Exam Vital Signs (past 8 hours): - 03/23/23 03:00 03/23/23 03:00 Temperature 98.8 F Pulse Rate 90 Respiratory Rate 20 Blood Pressure 109/76 Pulse Oximetry 91 Oxygen Delivery Method Nasal Cannula Oxygen Flow Rate 1.5 1.5 Fraction of Inspired Oxygen 26 Fraction of Inspired Oxygen 26 Oxygen Delivery Method Nasal Cannula Oxygen Flow Rate 1.5 Narrative Exam Narrative: Not much effort with strength testing, but appears to be 3-4/5 in hip flexors, quadriceps, hamstrings, DF, PF, EHL bilaterally. Sensation to light touch intact to BLE. Calves soft, compressible, nontender and without palpable cords or masses. Dressing placed intraoperatively is off almost completely. Objective Labs 03/23/23 08:23 03/23/23 08:23 Labs: Laboratory Results - last 24 hr 03/22/23 03/22/23 03/22/23 13:35 13:35 15:36 WBC 12.8 H RBC 3.05 L Hgb 9.6 L Hct 28.7 L MCV 94.2 MCH 31.6 MCHC 33.5 RDW 14.8 Plt Count 189 Neut % (Auto) 78.6 H Lymph % (Auto) 9.5 L [place] % (Auto) 10.5 Eos % (Auto) 1.0 L Baso % (Auto) 0.4 Neut # (Auto) 80336 H Lymph # (Auto) 1200 [place] # (Auto) 1300 H Eos # (Auto) 100 Baso # (Auto) 100 ABG pH 7.34 L ABG pCO2 44.7 ABG pO2 55 L ABG HCO3 24 ABG Total CO2 25 ABG O2 Saturation 86 L ABG Base Excess -2.0 FiO2 0.21 Sodium 136 L Potassium 4.5 Chloride 102 Carbon Dioxide 29 BUN 24 H Creatinine 1.24 Estimated GFR > 60 BUN/Creatinine Ratio 19.4 Glucose 96 Calcium 8.1 L Urine Color Urine Appearance Urine pH Ur Specific [place] Urine Protein Urine Glucose (UA) Urine Ketones Urine Occult Blood Urine Nitrate Urine Bilirubin Urine Urobilinogen Ur Leukocyte Esterase Urine RBC Urine WBC Ur Squamous Epith Cells Urine Bacteria Ur Culture Indicated? 03/22/23 20:00 WBC RBC Hgb Hct MCV MCH MCHC RDW Plt Count Neut % (Auto) Lymph % (Auto) [place] % (Auto) Eos % (Auto) Baso % (Auto) Neut # (Auto) Lymph # (Auto) [place] # (Auto) Eos # (Auto) Baso # (Auto) ABG pH ABG pCO2 ABG pO2 ABG HCO3 ABG Total CO2 ABG O2 Saturation ABG Base Excess FiO2 Sodium Potassium Chloride Carbon Dioxide BUN Creatinine Estimated GFR BUN/Creatinine Ratio Glucose Calcium Urine Color Yellow Urine Appearance Clear Urine pH 5.5 Ur Specific [place] 1.025 Urine Protein Negative Urine Glucose (UA) Negative Urine Ketones Negative Urine Occult Blood 1+ H Urine Nitrate Negative Urine Bilirubin Negative Urine Urobilinogen 0.2 Ur Leukocyte Esterase Negative Urine RBC 1-5/hpf Urine WBC 1-5/hpf Ur Squamous Epith Cells None seen Urine Bacteria None seen Ur Culture Indicated? Cult not indicated PFSH Medical History Acid reflux Anxiety Martinez's esophagus COPD (chronic obstructive pulmonary disease) Eczema Hiatal hernia HLD (hyperlipidemia) HTN (hypertension) Pre-diabetes Sciatica Surgical History History of total left knee replacement Hx of knee surgery Hx of laminectomy Social History household members: children Smoking Status: Current every day smoker alcohol intake: former Assessment & Plan Post-op Assessment and plan (1) S/P lumbar fusion: Assessment and Plan narrative: Continue PT. Pt may require SNF or at least . Given new medical issues, earliest possible discharge likely tomorrow. (2) Pneumonia: Assessment and Plan narrative: CXR negative, but in light of need for supplemental O2 and elevated WBC, he has been started on ceftriaxone. Appreciate Dr Fernandez's help with this pt. (3) Urinary retention: Assessment and Plan narrative: Will start tamsulosin. Postoperative Procedures: Procedures Operation Date: 03/20/23 10:45 Actual Procedure Side Surgeon p L4-5, L5-S1 TLIF w. posterior instrumentation -Robot Neelam Sanders MD Postoperative day: 3 Quality VTE Deep Vein Thrombosis/Pulmonary Embolism Present on Admission: No
[2023-03-23] MEDS: NICOTINE 21 MG PATCH TOP (08:12)
[2023-03-23] MEDS: DOCUSATE 100 MG CAPSULE PO ×2 (08:13→20:58)
[2023-03-23] MEDS: GABAPENTIN 600 MG TABLET PO (08:13)
[2023-03-23] MEDS: ACETAMINOPHEN 325 MG TABLET 650 MG PO ×2 (08:14→14:57)
[2023-03-23] MEDS: ATORVASTATIN 20 MG TABLET 40 MG PO (08:14)
[2023-03-23] MEDS: PANTOPRAZOLE DR 40 MG TABLET PO (08:14)
[2023-03-23] MEDS: METOPROLOL ER 50 MG TABLET 150 MG PO (08:15)
[2023-03-23] MEDS: lisinopriL 20 MG TABLET 40 MG PO (08:16)
[2023-03-23] MEDS: hydrOXYzine pamoate 25 MG CAPSULE 50 MG PO (08:17)
[2023-03-23 08:36] LABS: Add Manual Diff / Slide Review NO; Basophils Absolute Auto 0 /uL (0-100); Basophils Percent Auto 0.3 % (0-2); Eosinophils Absolute Auto 200 /uL (0-450); Eosinophils Percent Auto 1.3 % (2-4); Hematocrit 28.1 % (41-53); Hemoglobin 9.5 g/dL (13.5-17.5); Lymphocytes Absolute Auto 900 /uL (1100-4500); Lymphocytes Percent Auto 7.2 % (25-40); Mean Corpuscular HGB Conc 33.7 % (30-36); Mean Corpuscular Hemoglobin 31.5 PG (26-34); Mean Corpuscular Volume 93.7 fL (80-100); Monocytes Absolute Auto 1200 /uL (0-900); Monocytes Percent Auto 9.5 % (3-14); Neutrophils Absolute Auto 10200 /uL (1500-7000); Neutrophils Percent Auto 81.7 % (50-75); Platelet Count 211 X10^3/uL (150-400); Red Cell Distribution Width 14.2 % (11.6-14.8); White Blood Cell Count 12.5 X10^3/uL (4.5-11.0)
[2023-03-23 08:54] LABS: Alanine Aminotransferase 20 IU/L (<50); Albumin 3.7 g/dL (3.5-5.0); Albumin Globulin Ratio 1.3 (1.0-2.8); Alkaline Phosphatase 58 U/L (38-126); Aspartate Aminotransferase 41 IU/L (17-59); BUN Creatinine Ratio 17.6 (6-22); Bilirubin Total 0.8 mg/dL (0.2-1.3); Blood Urea Nitrogen 16 mg/dL (9-20); Calcium 8.6 mg/dL (8.4-10.2); Carbon Dioxide 26 mmol/L (22-32); Chloride 101 mmol/L (98-107); Estimated Glomerular Filt Rate > 60 mL/min (>60); Globulin 2.8 g/dL (1.7-4.1); Glucose 101 mg/dL (80-110); HEMOLYSIS < 15 (0-50); Potassium 4.3 mmol/L (3.4-5.1); Sodium 134 mmol/L (137-145); Total Protein 6.5 g/dL (6.3-8.2)
[2023-03-23 09:02] LABS: NT-proBNP (BNP-Adult 18+) 149 pg/mL (<125)
[2023-03-23 09:33] LABS: Procalcitonin 0.43 ng/mL (<0.5)
--- NOTE | 2023-03-23 09:43 | PT-IP ANOTE ---
Attempted to see pt at 9:43 AM, pt adamantly refused therapy stating I am ignoring you and you are making me really angry. Will attempt again this PM.
[2023-03-23] MEDS: SODIUM CHLORIDE 0.9% FLUSH 10 ML IV ×2 (10:23→20:59)
[2023-03-23] MEDS: cefTRIAXone 1,000 MG in SODIUM CHLORIDE 0.9% 100 ML 200 MG IV (10:23)
[2023-03-23] MEDS: AZITHROMYCIN 250 MG TABLET 500 MG PO (10:23)
[2023-03-23] MEDS: TAMSULOSIN 0.4 MG CAPSULE PO (11:30)
--- NOTE | 2023-03-23 12:17 | OT.IPNOTE ---
Attempted to see pt for OT treatment, pt able to awaken but still falling asleep. Able to pit ice pack on his back and refreshed his water. NO charge.
--- NOTE | 2023-03-23 14:31 | PT-IP ANOTE ---
Addendum entered and electronically signed by Lin Parker, PROPOSAL WRITER 03/23/23 14:58: Pt also confused, directing this therapist to go to the kitchen down the [address]vin and get me a fork. Pt became agitated when reminded he is in the hospital. Original Note: Attempted to see pt twice again this PM, 12:20 and 14:30, on first attempt pt stood to urinate but refused further mobility. On second attempt, pt adamantly refused any mobility including offer to assist back to bed, stating leave me alone! Will attempt again tomorrow AM.
--- NOTE | 2023-03-23 14:58 | DI.CT.S_ITS ---
PROCEDURE: CT HEAD/BRAIN WO CON INDICATIONS: confusion, excessive sleepiness TECHNIQUE: Noncontrast 4.5 mm thick angled axial sections acquired from the foramen magnum to the vertex, with coronal and sagittal reformats. For radiation dose reduction, the following was used: automated exposure control, adjustment of mA and/or kV according to patient size. COMPARISON: [facility], CT, CT HEAD WITHOUT CONTRAST, 06/03/2022, 19:57. FINDINGS: Image quality: Excellent. CSF spaces: Basal cisterns are patent. No extra-axial fluid collections. The ventricles are symmetric in size and shape. Brain: No intracranial bleeds or masses. There is moderate cerebral volume loss for age, with resultant ventricular and sulcal prominence. There are mild periventricular and deep white matter chronic small vessel ischemic changes. There is intracranial internal carotid artery atherosclerosis. Skull and face: Calvarium and visualized facial bones appear intact, without suspicious lesions. Sinuses: Partially visualized left maxillary sinus mucous retention cyst versus polyp. Partially visualized mild left maxillary sinus mucosal thickening. Left mastoid air cells are opacified. Left middle ear is partially opacified. IMPRESSION: No acute intracranial disease process. Opacified left mastoid air cells and partial opacification of the left middle ear. Recommend correlation with physical findings to exclude otomastoiditis. Dictated by: Marjorie Abreu MD, PhD on 03/23/2023 at 16:02 Approved by: Marjorie Abreu MD, PhD on 03/23/2023 at 16:06
[2023-03-23] MEDS: HYDROMORPHONE 0.5 MG INJ IV (15:21)
--- NOTE | 2023-03-23 15:58 | OT.IP.TRT ---
Current Diagnoses Pneumonia, unspecified organism (03/20/23) Other spondylosis with radiculopathy, lumbar region (03/20/23) Postlaminectomy syndrome, not elsewhere classified (03/20/23) Retention of urine, unspecified (03/20/23) Arthrodesis status (03/20/23) Surgery Performed Operation Date: 03/20/23 10:45 Actual Procedures p L4-5, L5-S1 TLIF w. posterior instrumentation -Robot - Neelam Sanders MD Occupational Therapy Treatment Note M2 OT-IP Current Condition Start: 03/21/23 13:52 Freq: Status: Active Protocol: Document 03/21/23 12:04 [facility] (Rec: 03/21/23 14:11 [facility] [id number]) Occupational Therapy Current Condition Current Condition Evaluation Date 03/21/23 Treatment Diagnosis S/P L4-5, L5-S1 TLIF Diagnosis Onset Date 03/20/23 Post Operative Precautions Lumbar Precautions Log Roll,No Twisting,Limit Bending,Lifting Restriction of 10 lbs,Gait Belt above Incisional Area M3 OT- IP Subjective and Pain Start: 03/21/23 13:52 Freq: Status: Active Protocol: Document 03/23/23 13:58 [facility] (Rec: 03/23/23 16:14 [facility] [id number]) OT- Subjective Occupational Therapy Visit Type Type Treatment Note Visit Start Time 15:48 Visit Stop Time 15:58 Total Visit Minutes 10 Occupational Therapy Visit Comments Patient Comments Pt getting back from head CT. Patient/Caregiver Goals To not be in pain. OT Pain Assessment Pain When Pain Assessed At Rest Pain Present Pain Present Pain Reported Location back Pain Behaviors Facial Grimacing M6 OT- IP Functional Cognition Start: 03/21/23 13:52 Freq: Status: Active Protocol: Document 03/21/23 12:04 [facility] (Rec: 03/21/23 14:11 [facility] [id number]) Cognitive Factors Limiting Selfcare Function Cognitive Ability Level of Alertness Alert Patient Orientation Name,Place,Situation Attention Span Ability Capable of Focused Attention, Capable of Sustained Attention Ability to Follow Commands Able to Follow One Step Commands Safety Awareness Decreased Ability to Apply Precautions Cognitive Comments Cognitive Assessment Comments Pt able to follow commands but needing reminders to follow his back precautions. Pt is a little insistent for his care. OT- Vision and Hearing OT- Vision Assessment Visual Acuity Glasses For Reading M7 OT- IP Mobility and Balance Start: 03/21/23 13:52 Freq: Status: Active Protocol: Document 03/23/23 13:58 [facility] (Rec: 03/23/23 16:14 [facility] [id number]) OT-Transfer Assessment Sit to and From Stand Sit to and from Stand Moderate Assistance Transfers Transfer Ability Moderate Assistance Technique Transfer Destination Bed,Chair Transfer Technique Stand Step Pivot Devices Transfer Assistive Devices Gait Belt,Front Wheeled Walker Comments Mobility Comments MODA to stand to FWW and OLIVIA x2, MODA x1 with FWW and pt seemingly having more difficulty to move his RLE and taking smaller steps when trying to get back to the recliner. OT- Balance Assessment Sitting Balance and Reactions Static Sitting Balance Ability Good Standing Balance and Reactions Static Standing Balance Ability Fair Dynamic Standing Balance Ability Poor M9 OT- IP Assessment and Plan Start: 03/21/23 13:52 Freq: Status: Active Protocol: Document 03/23/23 13:58 [facility] (Rec: 03/23/23 16:14 [facility] [id number]) OT Summary Assessment and Plan Potential Rehabilitation Potential Good Analytic Complexity at Evaluation Low Summary OT Impairments Pain,Balance,Functional Cognition,Functional Mobility, Dressing,Toileting,Bathing, Toilet Transfers,Shower Transfers Progress Towards Goals Slow Progress due to Medical Issues,Slow Progress due to Activity Tolerance,Slow Progress due to Cognition Assessment Summary Pt is forgetful and not remembering that OT was not with him during head CT. Pt has been sleeping in the recliner for most of the day and refusing to get up. Pt states he is in more pain now, nursing aware. Pt needing more assist today for transfers from SBA to MIN/MODA. At this time continue to assess for appropriateness to go home with assist versus needing more care, pt now using O2. Goals Dressing Goal Independent Toileting Goal Independent Bathing Goal Independent Toilet Transfer Goal Independent Shower Transfer Goal Independent Days to Meet Goals 15 Frequency of Treatment Frequency Of Treatment Once a Day Treatment Plan OT Treatment Plan ADL Training,Functional Mobility,Patient/Family Education,Discharge Planning Discharge Recommendations OT Discharge Recommendations Home with 24/ Assist Available,Home Health Transportation Needs at Discharge Private Vehicle
--- NOTE | 2023-03-23 15:58 | OT.IP.TRT ---
Current Diagnoses Pneumonia, unspecified organism (03/20/23) Other spondylosis with radiculopathy, lumbar region (03/20/23) Postlaminectomy syndrome, not elsewhere classified (03/20/23) Retention of urine, unspecified (03/20/23) Arthrodesis status (03/20/23) Surgery Performed Operation Date: 03/20/23 10:45 Actual Procedures p L4-5, L5-S1 TLIF w. posterior instrumentation -Maribel - Neelam Sanders MD Occupational Therapy Treatment Note M2 OT-IP Current Condition Start: 03/21/23 13:52 Freq: Status: Active Protocol: Document 03/21/23 12:04 [facility] (Rec: 03/21/23 14:11 [facility] [id number]) Occupational Therapy Current Condition Current Condition Evaluation Date 03/21/23 Treatment Diagnosis S/P L4-5, L5-S1 TLIF Diagnosis Onset Date 03/20/23 Post Operative Precautions Lumbar Precautions Log Roll,No Twisting,Limit Bending,Lifting Restriction of 10 lbs,Gait Belt above Incisional Area M3 OT- IP Subjective and Pain Start: 03/21/23 13:52 Freq: Status: Active Protocol: Document 03/23/23 13:58 [facility] (Rec: 03/23/23 16:14 [facility] [id number]) OT- Subjective Occupational Therapy Visit Type Type Treatment Note Visit Start Time 13:48 Visit Stop Time 13:58 Total Visit Minutes 10 Occupational Therapy Visit Comments Patient Comments Pt getting back from head CT. Patient/Caregiver Goals To not be in pain. OT Pain Assessment Pain When Pain Assessed At Rest Pain Present Pain Present Pain Reported Location back Pain Behaviors Facial Grimacing M5 OT- IP IADL's Start: 03/21/23 13:52 Freq: Status: Active Protocol: Document 03/21/23 12:04 [facility] (Rec: 03/21/23 14:11 [facility] [id number]) OT-Instrumental Activities of Daily Living Deficits IADL Deficits Identified Deficits Home Safety Awareness Awareness of Need for Assistance at Home Decreased Awareness Home Safety Comments Pt is insistent in his care. Pt states will have his girlfriend to stay with him to assist if needed. M6 OT- IP Functional Cognition Start: 03/21/23 13:52 Freq: Status: Active Protocol: Document 03/21/23 12:04 [facility] (Rec: 03/21/23 14:11 [facility] [id number]) Cognitive Factors Limiting Selfcare Function Cognitive Ability Level of Alertness Alert Patient Orientation Name,Place,Situation Attention Span Ability Capable of Focused Attention, Capable of Sustained Attention Ability to Follow Commands Able to Follow One Step Commands Safety Awareness Decreased Ability to Apply Precautions Cognitive Comments Cognitive Assessment Comments Pt able to follow commands but needing reminders to follow his back precautions. Pt is a little insistent for his care needs. OT- Vision and Hearing OT- Vision Assessment Visual Acuity Glasses For Reading M7 OT- IP Mobility and Balance Start: 03/21/23 13:52 Freq: Status: Active Protocol: Document 03/23/23 13:58 [facility] (Rec: 03/23/23 16:14 [facility] [id number]) OT-Transfer Assessment Sit to and From Stand Sit to and from Stand Moderate Assistance Transfers Transfer Ability Moderate Assistance Technique Transfer Destination Bed,Chair Transfer Technique Stand Step Pivot Devices Transfer Assistive Devices Gait Belt,Front Wheeled Walker Comments Mobility Comments MODA to stand to FWW and OLIVIA x2, MODA x1 with FWW and pt seemingly having more difficulty to move his RLE and taking smaller steps when trying to get back to the recliner. OT- Balance Assessment Sitting Balance and Reactions Static Sitting Balance Ability Good Standing Balance and Reactions Static Standing Balance Ability Fair Dynamic Standing Balance Ability Poor M9 OT- IP Assessment and Plan Start: 03/21/23 13:52 Freq: Status: Active Protocol: Document 03/23/23 13:58 [facility] (Rec: 03/23/23 16:14 [facility] [id number]) OT Summary Assessment and Plan Potential Rehabilitation Potential Good Analytic Complexity at Evaluation Low Summary OT Impairments Pain,Balance,Functional Cognition,Functional Mobility, Dressing,Toileting,Bathing, Toilet Transfers,Shower Transfers Progress Towards Goals Slow Progress due to Medical Issues,Slow Progress due to Activity Tolerance,Slow Progress due to Cognition Assessment Summary Pt is forgetful and not remembering that OT was not with him during head CT. Pt has been sleeping in the recliner for most of the day and refusing to get up. Pt states he is in more pain now, nursing aware. Pt needing more assist today for transfers. At this time continue to assess for appropriateness to go home with assist versus needing more care, pt now using O2. Goals Dressing Goal Independent Toileting Goal Independent Bathing Goal Independent Toilet Transfer Goal Independent Shower Transfer Goal Independent Days to Meet Goals 15 Frequency of Treatment Frequency Of Treatment Once a Day Treatment Plan OT Treatment Plan ADL Training,Functional Mobility,Patient/Family Education,Discharge Planning Discharge Recommendations OT Discharge Recommendations Home with 24/ Assist Available,Home Health Transportation Needs at Discharge Private Vehicle
--- NOTE | 2023-03-23 16:21 | PC.NURSE ---
Day shift: Pt continues to be lethargic and slept in his chair the majority of the day. Pt reports his pain is increasing, then pt promptly falls back asleep. Pain medication today: 5mg oxycodone and 0.5mg IV dilaudid. Pt reports intense pain with movement/ambulating. Reminded pt that he needs to move/ambulate in order to improve and recover. Pt states he does not want to ambulate at this time. Notified MD Fernandez of continued somnolence. CT done for mild confusion and increased lethargy - came back normal. Pt continues to require 02 via NC - 2L. Productive, intermittent, hacking cough. Mucous - clear and yellow - sputum. Chest xray unremarkable today. Pt reports mild numbness on BLE. Pt has neuropathy at baseline. +pedal pulses. No edema. Dressing on pt's back changed today, cleaned and gauze + tape. BG checks all WNL. No insulin needed.
--- NOTE | 2023-03-23 16:33 | PM.CN ---
History of Present Illness Consult details Date Patient Seen: 03/23/23 Time Patient Seen: 09:00 Chief complaint: Back pain Narrative: Doroteo Montesinos is a 62yo male with PMH of COPD, DM2, GERD, Martinez's esophagus, HTN, HLD, prediabetes and daily smoker who medicine consulted by ortho s/p lumbar fusion surgery for hypoxia and excessive sleepiness. Patient sleeping heavily in chair on my arrival and drooling from mouth. Awakened to physical stimuli and says his back is screaming, appears bothered and annoyed, then falls back asleep. O2 sats currently 95% on 2L NC while sleeping and dipped to 88% with O2 off. Patient cannot provide additional history due to sleepiness. His labs show a leukocytosis of 12.8, anemia of 9.5 Hgb, ABG with pH 7.34, pCO2 44.7 and decreased pO2 of 55. BNP 149. Procal 0.43. CXR with no acute abnormality. Meds Home Medications and Allergies Home Medications Medication Instructions Recorded Confirmed Type albuterol sulfate 90 mcg/actuation 2 puff inhalation Q4-6H PRN COPD 03/15/23 03/20/23 History aerosol inhaler atorvastatin 40 mg tablet 40 mg PO DAILY 03/15/23 03/20/23 History cyclobenzaprine 5 mg tablet 10 mg PO QAM 03/15/23 03/20/23 History gabapentin 600 mg tablet 600 mg PO DAILY 03/15/23 03/20/23 History hydroxyzine HCl 50 mg tablet 50 mg PO DAILY 03/15/23 03/20/23 History lisinopril 40 mg tablet 40 mg PO DAILY 03/15/23 03/20/23 History metformin 1,000 mg tablet,extended 2,000 mg PO DAILY 03/15/23 03/20/23 History release 24hr metoprolol succinate 100 mg 100 mg PO DAILY 03/15/23 03/20/23 History tablet,extended release 24 hr metoprolol succinate 50 mg 50 mg PO DAILY 03/15/23 03/20/23 History tablet,extended release 24 hr pantoprazole 40 mg tablet,delayed 40 mg PO DAILY 03/15/23 03/20/23 History release sildenafil 50 mg tablet 100 mg PO DAILY PRN Sexual acitivty 03/15/23 03/20/23 History acetaminophen 325 mg tablet 650 mg PO Q6H PRN Fever/Mild Pain 03/22/23 Rx (1-3) #60 tabs docusate sodium 100 mg capsule 100 mg PO BID #10 caps 03/22/23 Rx oxycodone 5 mg tablet 5 mg PO Q4H PRN pain #40 tabs 03/22/23 Rx Allergies Allergy/AdvReac Type Severity Reaction Status Date / Time No Known Drug Allergies Allergy Verified 03/20/23 09:41 Review of Systems Review of Systems Narrative: All other systems reviewed with the patient and are negative unless otherwise stated. Exam Vital Signs (past 8 hours): - 03/23/23 09:48 03/23/23 11:00 03/23/23 13:58 Temperature 97.1 F L Pulse Rate 71 78 Respiratory Rate 20 Blood Pressure 122/65 Pulse Oximetry 93 91 Oxygen Delivery Method Nasal Cannula Oxygen Flow Rate 0 2 Fraction of Inspired Oxygen 26 Oxygen Delivery Method Nasal Cannula Oxygen Flow Rate 2 Narrative Exam Narrative: GEN: somnolent, awakens then falls back asleep, appears oriented when awake HEENT: moist mucous membranes, PERRL NECK: trachea midline, no JVD CV: regular rate and rhythm, no murmurs PULM: clear bilaterally MSK: post-surg dressings of lumbar spine ABD: soft, nontender, nondistended, no organomegaly EXT: warm and well perfused with no edema NEURO: oriented, no focal deficits Objective Labs 03/23/23 08:23 03/23/23 08:23 Labs: Laboratory Results - last 24 hr 03/22/23 03/23/23 03/23/23 20:00 08:23 08:23 WBC 12.5 H RBC 3.00 L Hgb 9.5 L Hct 28.1 L MCV 93.7 MCH 31.5 MCHC 33.7 RDW 14.2 Plt Count 211 Neut % (Auto) 81.7 H Lymph % (Auto) 7.2 L [place] % (Auto) 9.5 Eos % (Auto) 1.3 L Baso % (Auto) 0.3 Neut # (Auto) 57743 H Lymph # (Auto) 900 L [place] # (Auto) 1200 H Eos # (Auto) 200 Baso # (Auto) 0 Sodium Potassium Chloride Carbon Dioxide BUN Creatinine Estimated GFR BUN/Creatinine Ratio Glucose Calcium Magnesium 2.0 Total Bilirubin AST ALT Alkaline Phosphatase NT-Pro-B Natriuret Pep Total Protein Albumin Globulin Albumin/Globulin Ratio Procalcitonin Urine Color Yellow Urine Appearance Clear Urine pH 5.5 Ur Specific [place] 1.025 Urine Protein Negative Urine Glucose (UA) Negative Urine Ketones Negative Urine Occult Blood 1+ H Urine Nitrate Negative Urine Bilirubin Negative Urine Urobilinogen 0.2 Ur Leukocyte Esterase Negative Urine RBC 1-5/hpf Urine WBC 1-5/hpf Ur Squamous Epith Cells None seen Urine Bacteria None seen Ur Culture Indicated? Cult not indicated 03/23/23 03/23/23 08:23 08:23 WBC RBC Hgb Hct MCV MCH MCHC RDW Plt Count Neut % (Auto) Lymph % (Auto) [place] % (Auto) Eos % (Auto) Baso % (Auto) Neut # (Auto) Lymph # (Auto) [place] # (Auto) Eos # (Auto) Baso # (Auto) Sodium 134 L Potassium 4.3 Chloride 101 Carbon Dioxide 26 BUN 16 Creatinine 0.91 Estimated GFR > 60 BUN/Creatinine Ratio 17.6 Glucose 101 Calcium 8.6 Magnesium Total Bilirubin 0.8 AST 41 ALT 20 Alkaline Phosphatase 58 NT-Pro-B Natriuret Pep 149 H Total Protein 6.5 Albumin 3.7 Globulin 2.8 Albumin/Globulin Ratio 1.3 Procalcitonin 0.43 Urine Color Urine Appearance Urine pH Ur Specific [place] Urine Protein Urine Glucose (UA) Urine Ketones Urine Occult Blood Urine Nitrate Urine Bilirubin Urine Urobilinogen Ur Leukocyte Esterase Urine RBC Urine WBC Ur Squamous Epith Cells Urine Bacteria Ur Culture Indicated? [facility] Medical History Acid reflux Anxiety Martinez's esophagus COPD (chronic obstructive pulmonary disease) Eczema Hiatal hernia HLD (hyperlipidemia) HTN (hypertension) Pre-diabetes Sciatica Surgical History History of total left knee replacement Hx of knee surgery Hx of laminectomy Social History household members: children Tobacco & Substance Use Smoking Status: Current every day smoker alcohol intake: former Assessment & Plan Assessment & Plan narrative: # acute hypoxic resp failure in setting of COPD -requiring 2L NC post-op, patient without wheezes on exam so doubt COPD exac. BNP low so not CHF. -WBC elevated, procal at borderline positive for infection -start IV abx to cover for PNA -wean O2 as able -titrate O2 to 88-92% given COPD history -if not improving will consider CTA chest to rule out PE # excess somnolence -unclear if patient didn't sleep at all recently -ABG without hypercapnia -CT head negative -monitor and avoid sedating meds # s/p lumbar fusion -managed by ortho team # DM2 -low dose SSI and ACHS checks Medicine will continue to follow. Thank you for allowing us to participate in the care of this patient. Should you have any questions, do not hesitate to speak with us directly or call us.
--- NOTE | 2023-03-23 17:27 | PC.NURSE ---
Day shift: Pt continues to be lethargic and slept in his chair the majority of the day. Pt reports his pain is increasing, then pt promptly falls back asleep. Pain medication today: 5mg oxycodone and 0.5mg IV dilaudid as needed. Pt reports intense pain with movement/ambulating. Reminded pt that he needs to move/ambulate in order to improve and recover. Pt states he does not want to ambulate at this time. Notified MD Fernandez of continued somnolence. CT done for mild confusion and increased lethargy - came back normal. Pt continues to require 02 via NC - 2L. Productive, intermittent, hacking cough. Mucous - clear and yellow - sputum. Chest xray unremarkable today. Pt receiving IV and PO antibiotics for pneumonia. Pt reports mild numbness on BLE. Pt has neuropathy at baseline. +pedal pulses. No edema. Dressing on pt's back changed today, cleaned and gauze + tape. Highest BG 145. Pt refused insulin with dinner for BG of 145. Pt told this RN What is the plan? I am about ready to walk out of here. No one knows what's going on. This RN told patient that he can't sit in a chair all day and needs to move/ambulate in order to improve - physically and for pain improvement. Pt stated I am moving! I need to talk to someone higher up than you. Someone who makes decisions around here. Or I can leave. Notified charge nurse Darlene and notified SUMAN Villavicencio. They both reported that plan is to continue as already stated - treat pain and encourage patient to get up and move. Gave patient additional pain medication after dinner and encouraged him again to ambulate as tolerated with 1PA. He was able to ambulate with FWW and 2PA for 5 min around room and out in hallway. Will continue to monitor.
[2023-03-23 17:46] LABS: Fractionated Inspired Oxygen 28; HCO3 ABG 27 mmol/L (23-27); Oxygen Saturation ABG 93 % (95-100); PCO2 ABG 44.3 mmHg (35-45); PO2 ABG 68 mmHg (80-100); TCO2 ABG 28 mmol/L (23-27); pH ABG 7.39 (7.35-7.45)
[2023-03-23] MEDS: NICOTINE 14 PATCH 14 MG TOP (18:46)
[2023-03-23] MEDS: ALBUTEROL 2.5 MG/3 ML NEB (ADULT) INH (19:32)
[2023-03-23] MEDS: SENNOSIDES 8.6 MG TABLET 17.2 MG PO (20:59)
[2023-03-24] MEDS: OXYCODONE IR 5 MG TABLET PO ×3 (02:49→09:22)
[2023-03-24 02:50] VITALS: BP 147/73; PULSE 83; RESP 20; TEMP 36.7; O2SAT 91
--- NOTE | 2023-03-24 03:03 | PC.NURSE ---
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 Pt still refused. Pt refuses to comply with instructions, becomes agitated and confused, States You guys don't know anything around here, I want my pain meds brought to me whenever i want them. RN informed Pt that he himself refused pain medication twice in the last 2 hours. Pt denies and said Just give me my meds now. RN reoriented Pt to location and time and pain management medication. Pt apologized and stated I just want my pain meds when i want them.
[2023-03-24 05:12] LABS: Add Manual Diff / Slide Review NO; Basophils Absolute Auto 100 /uL (0-100); Basophils Percent Auto 0.8 % (0-2); Eosinophils Absolute Auto 200 /uL (0-450); Eosinophils Percent Auto 1.8 % (2-4); Hemoglobin 9.8 g/dL (13.5-17.5); Lymphocytes Absolute Auto 1100 /uL (1100-4500); Mean Corpuscular HGB Conc 33.7 % (30-36); Mean Corpuscular Hemoglobin 31.3 PG (26-34); Monocytes Absolute Auto 900 /uL (0-900); Monocytes Percent Auto 7.6 % (3-14); Neutrophils Absolute Auto 8900 /uL (1500-7000); Neutrophils Percent Auto 79.8 % (50-75); Platelet Count 257 X10^3/uL (150-400); Red Blood Cell Count 3.12 X10^6/uL (4.5-5.9); Red Cell Distribution Width 14.4 % (11.6-14.8); White Blood Cell Count 11.2 X10^3/uL (4.5-11.0)
[2023-03-24 05:24] LABS: BUN Creatinine Ratio 17.4 (6-22); Blood Urea Nitrogen 16 mg/dL (9-20); Carbon Dioxide 27 mmol/L (22-32); Chloride 101 mmol/L (98-107); Estimated Glomerular Filt Rate > 60 mL/min (>60); Glucose 136 mg/dL (80-110); HEMOLYSIS < 15 (0-50); Potassium 4.2 mmol/L (3.4-5.1); Sodium 134 mmol/L (137-145)
[2023-03-24] MEDS: ACETAMINOPHEN 325 MG TABLET 650 MG PO (05:34)
--- NOTE | 2023-03-24 07:55 | PM.PN.1 ---
Subjective Subjective Interval history: No acute events overnight. Weaned off O2. Refused SCD's and argued with nursing staff over his pain meds. Exam Vital Signs (past 8 hours): - 03/24/23 02:50 Temperature 98.1 F Pulse Rate 83 Respiratory Rate 20 Blood Pressure 147/73 H Pulse Oximetry 91 Oxygen Flow Rate 0 Fraction of Inspired Oxygen 24 SaO2/FiO2 Ratio 383 Oxygen Delivery Method Nasal Cannula Oxygen Flow Rate 0 Narrative Exam Narrative: GEN: NAD, awake and alert HEENT: moist mucous membranes, PERRL NECK: trachea midline, no JVD CV: regular rate and rhythm, no murmurs PULM: clear bilaterally MSK: post-surg dressings of lumbar spine ABD: soft, nontender, nondistended, no organomegaly EXT: warm and well perfused with no edema NEURO: oriented, no focal deficits Objective Labs 03/24/23 04:50 03/24/23 04:50 Labs: Laboratory Results - last 24 hr 03/23/23 03/23/23 03/23/23 08:23 08:23 08:23 WBC 12.5 H RBC 3.00 L Hgb 9.5 L Hct 28.1 L MCV 93.7 MCH 31.5 MCHC 33.7 RDW 14.2 Plt Count 211 Neut % (Auto) 81.7 H Lymph % (Auto) 7.2 L [place] % (Auto) 9.5 Eos % (Auto) 1.3 L Baso % (Auto) 0.3 Neut # (Auto) 19567 H Lymph # (Auto) 900 L [place] # (Auto) 1200 H Eos # (Auto) 200 Baso # (Auto) 0 ABG pH ABG pCO2 ABG pO2 ABG HCO3 ABG Total CO2 ABG O2 Saturation ABG Base Excess FiO2 Sodium 134 L Potassium 4.3 Chloride 101 Carbon Dioxide 26 BUN 16 Creatinine 0.91 Estimated GFR > 60 BUN/Creatinine Ratio 17.6 Glucose 101 Calcium 8.6 Magnesium 2.0 Total Bilirubin 0.8 AST 41 ALT 20 Alkaline Phosphatase 58 NT-Pro-B Natriuret Pep 149 H Total Protein 6.5 Albumin 3.7 Globulin 2.8 Albumin/Globulin Ratio 1.3 Procalcitonin 03/23/23 03/23/23 03/24/23 08:23 17:38 04:50 WBC 11.2 H RBC 3.12 L Hgb 9.8 L Hct 29.0 L MCV 93.0 MCH 31.3 MCHC 33.7 RDW 14.4 Plt Count 257 Neut % (Auto) 79.8 H Lymph % (Auto) 10.0 L [place] % (Auto) 7.6 Eos % (Auto) 1.8 L Baso % (Auto) 0.8 Neut # (Auto) 8900 H Lymph # (Auto) 1100 [place] # (Auto) 900 Eos # (Auto) 200 Baso # (Auto) 100 ABG pH 7.39 ABG pCO2 44.3 ABG pO2 68 L ABG HCO3 27 ABG Total CO2 28 H ABG O2 Saturation 93 L ABG Base Excess 2.0 FiO2 28 Sodium Potassium Chloride Carbon Dioxide BUN Creatinine Estimated GFR BUN/Creatinine Ratio Glucose Calcium Magnesium Total Bilirubin AST ALT Alkaline Phosphatase NT-Pro-B Natriuret Pep Total Protein Albumin Globulin Albumin/Globulin Ratio Procalcitonin 0.43 03/24/23 04:50 WBC RBC Hgb Hct MCV MCH MCHC RDW Plt Count Neut % (Auto) Lymph % (Auto) [place] % (Auto) Eos % (Auto) Baso % (Auto) Neut # (Auto) Lymph # (Auto) [place] # (Auto) Eos # (Auto) Baso # (Auto) ABG pH ABG pCO2 ABG pO2 ABG HCO3 ABG Total CO2 ABG O2 Saturation ABG Base Excess FiO2 Sodium 134 L Potassium 4.2 Chloride 101 Carbon Dioxide 27 BUN 16 Creatinine 0.92 Estimated GFR > 60 BUN/Creatinine Ratio 17.4 Glucose 136 H Calcium 9.0 Magnesium Total Bilirubin AST ALT Alkaline Phosphatase NT-Pro-B Natriuret Pep Total Protein Albumin Globulin Albumin/Globulin Ratio Procalcitonin PFSH Medical History Acid reflux Anxiety Martinez's esophagus COPD (chronic obstructive pulmonary disease) Eczema Hiatal hernia HLD (hyperlipidemia) HTN (hypertension) Pre-diabetes Sciatica Surgical History History of total left knee replacement Hx of knee surgery Hx of laminectomy Social History household members: children Smoking Status: Current every day smoker alcohol intake: former Assessment & Plan Assessment & Plan narrative: # acute hypoxic resp failure in setting of COPD, resolved -requiring 2L NC post-op, patient without wheezes on exam so doubt COPD exac. BNP low so not CHF. -WBC elevated, procal at borderline positive for infection -received rocephin, would empirically treat with 10 days of augmentin to cover for PNA -weaned off O2 now # excess somnolence, resolved -patient reported he hadn't slept in 3 days. Now fully awake. -ABG without hypercapnia -CT head negative # s/p lumbar fusion -managed by ortho team # DM2 -low dose SSI and ACHS checks Medicine will sign off today. Thank you for allowing us to participate in the care of this patient. Should you have any further questions, do not hesitate to speak with us directly or call us. Quality VTE Deep Vein Thrombosis/Pulmonary Embolism Present on Admission: No
--- NOTE | 2023-03-24 08:00 | P.DS_ITS ---
History of Present Illness History of Present Illness Date Patient Seen: 03/24/23 Time Patient Seen: 08:00 Chief complaint: Back pain Narrative: Operative Date/Time/Diagnoses Date of procedure: 03/20/23 Time of procedure: 11:30 Pre-op diagnosis: 1. L4-5, L5-S1 spinal stenosis 2. History of L5-S1 laminectomy with epidural scarring Post-op diagnosis: same Procedure & Clinicians Procedure: 1. L4-5, L5-S1 Postero-lateral and posterior interbody fusion 2. L4-5, L5-S1 interbody cage placement. 3. L4-5, L5-S1 decompressive laminectomy with bilateral facetecomies 4. L4-5, L5-S1 Posterior segmental instrumentation 5. Fitzhugh of bone marrow from iliac crest 6. Utilization of microsurgical technique and operating microscope 7. Utilization of robotic assisted navigation Same procedure as scheduled: Yes Indications: Patient has been having chronic back pain and worsening lumbar radiculopathy. Patient failed multiple conservative management with worsening pain weakness and numbness in her lower extremity.? Patient has been having difficulty performing activity of daily living.? After discussing risks benefits of treatment options, patient elected proceed with surgery. Surgeon: Neelam Sanders Options Trader: Kendra Villavicencio Click Yes if Unassisted: No Anesthesia Type: General Operative Notes Closure Type: primary Specimen(s): none sent Prosthetic devices, grafts, tissues, transplants, or devices: Globus CREO MIS screws, Rise cages Applied: catheter Estimated Blood Loss (mL): 100 Blood products transfused: none Discharge Providers Provider Date of admission: 03/20/23 09:21 Discharge Date: 03/24/23 Primary care physician: Shankar Hale PA-C Consults: 03/20/23 16:30 Consult to Occupational Therapy Evaluate & Treat Comment: Physician Instructions: Evaluate and treat Consult to Physical Therapy Evaluate & Treat Comment: Physician Instructions: Evaluate and Treat 03/23/23 07:49 Consult to Hospitalist Service Routine Comment: Consulting Provider: Duane Fernandez Reason for consultation: need for supplemental O2 Has provider been notified: Yes Discharge provider: Kendra Villavicencio PA-C Summary Hospital Course Discharge Diagnosis: L4-5, L5-S1 spinal stenosis, History of L5-S1 laminectomy with epidural scarring; s/p lumbar fusion Hospital Course: Mr Montesinos's hospital course was remarkable for poor pain control, increased somnolence, and refusal to work w/ PT. The hospitalist service was consulted for input; CXR and CT of the head revealed no abnormalities, but in light of increased WBC and procalcitonin and decreased pO2, he was empirically started on antibiotics for pneumonia. This improved all values within 24 hours. On the morning of POD# 4, he was alert and standing and walking on his own with a walker. He had not satisfactorily worked with PT yet. He had some trouble with voiding, but he was started on tamsulosin and this seemed to resolve the issue. His O2 sat was 91% on room air. He was eating without difficulty. Exam Vital Signs (past 8 hours): - 03/24/23 02:50 Temperature 98.1 F Pulse Rate 83 Respiratory Rate 20 Blood Pressure 147/73 H Pulse Oximetry 91 Oxygen Flow Rate 0 Fraction of Inspired Oxygen 24 SaO2/FiO2 Ratio 383 Oxygen Delivery Method Nasal Cannula Oxygen Flow Rate 0 Narrative Exam Narrative: 5/5 strength in hip flexors, quadriceps, hamstrings, DF, PF, EHL bilaterally. S ensation to light touch intact throughout BLE. Calves soft, compressible, nontender and without palpable cords or masses. Dressing changed this morning, clean and dry. Objective Labs 03/24/23 04:50 03/24/23 04:50 Labs: Laboratory Results - last 24 hr 03/23/23 03/23/23 03/23/23 08:23 08:23 08:23 WBC 12.5 H RBC 3.00 L Hgb 9.5 L Hct 28.1 L MCV 93.7 MCH 31.5 MCHC 33.7 RDW 14.2 Plt Count 211 Neut % (Auto) 81.7 H Lymph % (Auto) 7.2 L [place] % (Auto) 9.5 Eos % (Auto) 1.3 L Baso % (Auto) 0.3 Neut # (Auto) 44322 H Lymph # (Auto) 900 L [place] # (Auto) 1200 H Eos # (Auto) 200 Baso # (Auto) 0 ABG pH ABG pCO2 ABG pO2 ABG HCO3 ABG Total CO2 ABG O2 Saturation ABG Base Excess FiO2 Sodium 134 L Potassium 4.3 Chloride 101 Carbon Dioxide 26 BUN 16 Creatinine 0.91 Estimated GFR > 60 BUN/Creatinine Ratio 17.6 Glucose 101 Calcium 8.6 Magnesium 2.0 Total Bilirubin 0.8 AST 41 ALT 20 Alkaline Phosphatase 58 NT-Pro-B Natriuret Pep 149 H Total Protein 6.5 Albumin 3.7 Globulin 2.8 Albumin/Globulin Ratio 1.3 Procalcitonin 03/23/23 03/23/23 03/24/23 08:23 17:38 04:50 WBC 11.2 H RBC 3.12 L Hgb 9.8 L Hct 29.0 L MCV 93.0 MCH 31.3 MCHC 33.7 RDW 14.4 Plt Count 257 Neut % (Auto) 79.8 H Lymph % (Auto) 10.0 L [place] % (Auto) 7.6 Eos % (Auto) 1.8 L Baso % (Auto) 0.8 Neut # (Auto) 8900 H Lymph # (Auto) 1100 [place] # (Auto) 900 Eos # (Auto) 200 Baso # (Auto) 100 ABG pH 7.39 ABG pCO2 44.3 ABG pO2 68 L ABG HCO3 27 ABG Total CO2 28 H ABG O2 Saturation 93 L ABG Base Excess 2.0 FiO2 28 Sodium Potassium Chloride Carbon Dioxide BUN Creatinine Estimated GFR BUN/Creatinine Ratio Glucose Calcium Magnesium Total Bilirubin AST ALT Alkaline Phosphatase NT-Pro-B Natriuret Pep Total Protein Albumin Globulin Albumin/Globulin Ratio Procalcitonin 0.43 03/24/23 04:50 WBC RBC Hgb Hct MCV MCH MCHC RDW Plt Count Neut % (Auto) Lymph % (Auto) [place] % (Auto) Eos % (Auto) Baso % (Auto) Neut # (Auto) Lymph # (Auto) [place] # (Auto) Eos # (Auto) Baso # (Auto) ABG pH ABG pCO2 ABG pO2 ABG HCO3 ABG Total CO2 ABG O2 Saturation ABG Base Excess FiO2 Sodium 134 L Potassium 4.2 Chloride 101 Carbon Dioxide 27 BUN 16 Creatinine 0.92 Estimated GFR > 60 BUN/Creatinine Ratio 17.4 Glucose 136 H Calcium 9.0 Magnesium Total Bilirubin AST ALT Alkaline Phosphatase NT-Pro-B Natriuret Pep Total Protein Albumin Globulin Albumin/Globulin Ratio Procalcitonin [facility] Medical History Acid reflux Anxiety Martinez's esophagus COPD (chronic obstructive pulmonary disease) Eczema Hiatal hernia HLD (hyperlipidemia) HTN (hypertension) Pre-diabetes Sciatica Surgical History History of total left knee replacement Hx of knee surgery Hx of laminectomy Social History household members: children Smoking Status: Current every day smoker alcohol intake: former Discharge Assessment & Plan Assessment and Plan Assessment: 1) L4-5, L5-S1 spinal stenosis, History of L5-S1 laminectomy with epidural scarring; s/p lumbar fusion 2) Acute urinary retention 3) Acute respiratory failure Plan of Treatment: 1) Pt tells me today he normally takes hydrodocone/APAP 10/325, 4-6 pills/day as prescribed by Dr Knox at [facility]. I encouraged him to continue this prescription with his physician to manage baseline pain and that we would prescribe some additional oxycodone on top of this. However, a later search of the [facility] [employer] does not bear this out; his last listed prescription of a narcotic was tramadol in August 2022. I will discharge him with oxycodone 5mg q 4-6hrs and vistaril 25mg q 4hrs, both #60. He will follow up in our office in 10-14 days as scheduled. I also advised him that he must comply with physical therapy today before he can be discharged home. 2) I will continue tamsulosin for 2 weeks. 3) Discussed w/ Dr Fernandez; will d/c w/ augmentin x 10 days to cover for suspected pneumonia. Discharge Plan Discharge Plan Patient Disposition: Home Discharge orders & Medications Prescriptions: New acetaminophen 325 mg Tablet 650 mg PO Q6H PRN (Reason: Fever/Mild Pain (1-3)) Qty: 60 0RF docusate sodium 100 mg Capsule 100 mg PO BID Qty: 10 0RF oxycodone 5 mg tablet 5 mg PO Q4H PRN (Reason: pain) Qty: 40 0RF oxycodone 5 mg tablet 5 mg PO Q4H PRN (Reason: pain (scale score 7-10)) Qty: 20 0RF hydroxyzine HCl 25 mg tablet 25 mg PO Q4HR PRN (Reason: muscle spasm) Qty: 60 0RF amoxicillin-pot clavulanate 875-125 mg tablet 1 tab PO Q12H Qty: 20 0RF tamsulosin 0.4 mg capsule 0.4 mg PO DAILY Qty: 14 0RF Continued gabapentin 600 mg Tablet 600 mg PO DAILY sildenafil 50 mg Tablet 100 mg PO DAILY PRN (Reason: Sexual acitivty) Rx Instructions: administer 30 minutes to 4 hours before activity metoprolol succinate 50 mg Tablet Extended Release 24 Hr 50 mg PO DAILY metoprolol succinate 100 mg Tablet Extended Release 24 Hr 100 mg PO DAILY hydroxyzine HCl 50 mg Tablet 50 mg PO DAILY lisinopril 40 mg Tablet 40 mg PO DAILY metformin 1,000 mg Tablet Extended Release 24 Hr 2,000 mg PO DAILY albuterol sulfate 90 mcg/actuation Hfa Aerosol Inhaler 2 puff INHALATION Q4-6H PRN (Reason: COPD) atorvastatin 40 mg Tablet 40 mg PO DAILY pantoprazole 40 mg Tablet,Delayed Release (Dr/Ec) 40 mg PO DAILY cyclobenzaprine 5 mg Tablet 10 mg PO QAM Discontinued naproxen 500 mg Tablet 500 mg PO DAILY Medication counseling provided by Pharmacist: Yes Follow up/Referrals: Shankar Hale, PAHernánC [Primary Care Provider] - Neelam Sanders MD [Physician] - As previously scheduled (Two weeks as scheduled) Diet/Activity/Treatments Diet: Carb-consistent/Diabetic Activity: Limit bending, twisting, lifting Skin/Wound/Dressing Care Report to your healthcare provider any signs of infection, such as:: chills, fever, night sweats, increased pain, unusual drainage and unusual redness Dressing: Keep dressing clean and dry Visit Report/Discharge Packet Instructions: DI for Prescription Opioid Use, DI for Transforaminal Lumbar Interbody Fusion Stand Alone Forms: Patient Portal/API, Stroke Signs & Symptoms, Surgery Discharge Discharge Data Primary Care Provider: Shankar Hale Quality VTE Deep Vein Thrombosis/Pulmonary Embolism Present on Admission: No
--- NOTE | 2023-03-24 08:41 | PT.IPTN ---
Current Diagnoses Pneumonia, unspecified organism (03/20/23) Other spondylosis with radiculopathy, lumbar region (03/20/23) Postlaminectomy syndrome, not elsewhere classified (03/20/23) Retention of urine, unspecified (03/20/23) Arthrodesis status (03/20/23) Surgery Performed Operation Date: 03/20/23 10:45 Actual Procedures p L4-5, L5-S1 TLIF w. posterior instrumentation -Robot - Neelam Sanders MD Physical Therapy Treatment Note M2 PT-IP Current Condition Start: 03/21/23 08:48 Freq: NEEDED Status: Active Protocol: Document 03/21/23 10:10 AMB (Rec: 03/21/23 10:40 AMB [id number]) Physical Therapy Current Condition Current Condition Evaluation Date 03/21/23 Treatment Diagnosis L45, L5S1 Onset Date 03/20/23 M3 PT-IP Subjective Start: 03/21/23 08:48 Freq: NEEDED Status: Active Protocol: Document 03/24/23 09:04 TS (Rec: 03/24/23 09:25 TS [id number]) Subjective Physical Therapy Visit Type Type Treatment Note Visit Start Time 08:41 Visit Stop Time 08:53 Total Visit Minutes 12 Number of SPONGE DIVER Visits 2 Physical Therapy Visit Comments Patient Comments Pt found resting in chair, states he is ready to leave, agreeable to PT. M4 PT-IP Mobility and Gait Start: 03/21/23 08:48 Freq: NEEDED Status: Active Protocol: Document 03/24/23 09:04 TS (Rec: 03/24/23 09:25 TS [id number]) PT-Transfer Assessment Sit to and From Stand Sit to and from Stand Standby Assistance Equipment Transfer Assistive Device Gait Belt,Front Wheeled Walker Comments Mobility Comments Sit to stand from chair no AD with BUE support, pt impulsive to stand before therapist was ready with FWW. He ambulated with FWW ~200 SBA with a slow shuffle gait. Pt ambulated back to chair, stood no AD for stand to sit. Pt was left in chair requesting to have someone call his son so he can be picked up. Gait Assessment Gait Gait Assistance Required: Standby Assistance Distance (Feet) 200 Assistive Devices Assistive Device Front Wheeled Walker Gait Deviations General Gait Pattern Antalgic,Decreased Stride Length,Decreased Feet Clearance,Step-to Gait,Wide Based Gait Factors Limiting Gait Function Factors Limiting Gait Function Decreased Activity Tolerance, Decreased Sensation,Decreased Strength,Pain,Poor Balance, Poor Safety Awareness Comments Gait Comments See mobility comments. Stair Climbing Assessment Comments Stair Climbing Comments not performed, pt does not have stairs at home PT-Balance Assessment Sitting Balance and Reactions Static Sitting Balance Ability Good Dynamic Sitting Balance Ability Good Standing Balance and Reactions Static Standing Balance Ability Good Dynamic Standing Balance Ability Fair M5 PT-IP Objective Assessments Start: 03/21/23 08:48 Freq: NEEDED Status: Active Protocol: Document 03/21/23 10:10 AMB (Rec: 03/21/23 10:40 AMB [id number]) Orientation Orientation/Cognition Level of Alertness Alert Gross Range of Motion Upper Extremity ROM Assessment Within Functional Limits Strength Upper Extremity Strength Assessment Within Functional Limits Lower Extremity Strength Hip 4 Knee 4 Ankle 3 Comments Strength Comments Limited active ankle dorsiflexion bilaterally Sensation Assessment Comments Sensation Comments Pt reports bilateral foot numbness that was present before surgery but reports subjectively worsened since surgery M7 PT-IP Assessment and Plan Start: 03/21/23 08:48 Freq: NEEDED Status: Active Protocol: Document 03/24/23 09:04 TS (Rec: 03/24/23 09:25 TS [id number]) PT Summary Assessment and Plan Potential Rehabilitation Potential Fair Summary Impairments Pain,Strength,Transfers,Gait Progress Towards Goals Progressing Toward Goals Assessment Summary Pt is progressing well with his mobility. He was SBA for sit to stands with no AD and for ambulation ~200' with FWW, pt denied any dizziness, SOB, or thermal changes. PT is recommending return home with assist. Pt has access to FWW at home and requires no other DME at this time. Goals Bed Mobility Goal Standby Assistance Transfer Goal Standby Assistance Gait Goal Standby Assistance Gait Distance 150 Days to Meet Goals 5 Frequency of Treatment Frequency Of Treatment Twice a Day Treatment Plan Physical Therapy Treatment Plan Bed Mobility Training,Transfer Training,Gait Training Other Recommendations and Next Treatment Bed mobility, gait tolerance ( Focus increase distance) Recommendations To Nursing Amount of Assist Needed Standby Assistance Discharge Recommendations PT Discharge Recommendations Home with Assistance Equipment Needed for Home Before FWW Discharge Transportation Needs at Discharge Private Vehicle
[2023-03-24 08:42] VITALS: BP 118/62; PULSE 97; RESP 17; TEMP 36.6; O2SAT 93
[2023-03-24] MEDS: SODIUM CHLORIDE 0.9% FLUSH 10 ML IV (09:00)
[2023-03-24] MEDS: cefTRIAXone 1,000 MG in SODIUM CHLORIDE 0.9% 100 ML 200 MG IV (09:16)
[2023-03-24 09:21] VITALS: BP 118/62; PULSE 97
[2023-03-24] MEDS: DOCUSATE 100 MG CAPSULE PO (09:21)
[2023-03-24] MEDS: GABAPENTIN 600 MG TABLET PO (09:21)
[2023-03-24] MEDS: METOPROLOL ER 50 MG TABLET 150 MG PO (09:21)
[2023-03-24] MEDS: lisinopriL 20 MG TABLET 40 MG PO (09:21)
[2023-03-24] MEDS: NICOTINE 14 PATCH 14 MG TOP (09:21)
[2023-03-24] MEDS: AZITHROMYCIN 250 MG TABLET 500 MG PO (09:22)
[2023-03-24] MEDS: CYCLOBENZAPRINE 10 MG TABLET PO (09:22)
[2023-03-24] MEDS: ATORVASTATIN 20 MG TABLET 40 MG PO (09:22)
[2023-03-24] MEDS: TAMSULOSIN 0.4 MG CAPSULE PO (09:22)
[2023-03-24] MEDS: PANTOPRAZOLE DR 40 MG TABLET PO (09:22)
--- NOTE | 2023-03-24 10:26 | PC.NURSE ---
Day shift: Dressing changed this AM on back. Cleaned and put xeroform, gauze and tape per PA's instructions. Previous dressing was coming off due to pt's sweat. Pt tolerated dressing change well. Pt OOB ambulating with FWW independently. Pt refused chair alarm, SCDs, and AM insulin. Made sure walker was next to him at all times. Went over discharge information/instructions with patient. Pt stated he did not have any questions and stated understanding. Pt's son came to excelsior picker patient. Adrienne Bashir, escorted to emergency exit via wheelchair. PIV d/c'ed prior to discharge.
--- NOTE | 2023-03-24 12:18 | CM.DPNOTE ---
DC Note Home w/family today, outpatient follow up. No CM team needs upon discharge JW
== END 2023-03-24 10:47 | disposition home or self-care (01) | DRG 453 ==
PROVIDERS: Physician Assistant Medical; Student in an Organized Health Care Education/Training Program; Admitting Provider Orthopaedic Surgery Orthopaedic Surgery of the Spine; PCP Physician Assistant Medical; Referring Provider Orthopaedic Surgery Orthopaedic Surgery of the Spine; Visit Provider Orthopaedic Surgery Orthopaedic Surgery of the Spine
PROC: 0SG00AJ Fusion of Lumbar Vertebral Joint with Interbody Fusion Device, Posterior Approach, Anterior Column, Open Approach (ICD-10-PCS; principal; 2023-03-20 10:45)
DX: M48.061 Spinal stenosis, lumbar region without neurogenic claudication (principal); J96.01 Acute respiratory failure with hypoxia; M48.07 Spinal stenosis, lumbosacral region; M96.1 Postlaminectomy syndrome, not elsewhere classified; R33.9 Retention of urine, unspecified; J44.9 Chronic obstructive pulmonary disease, unspecified; E11.9 Type 2 diabetes mellitus without complications; I10 Essential (primary) hypertension; E78.5 Hyperlipidemia, unspecified; F17.210 Nicotine dependence, cigarettes, uncomplicated; K21.9 Gastro-esophageal reflux disease without esophagitis; F41.9 Anxiety disorder, unspecified; Z79.84 Long term (current) use of oral hypoglycemic drugs
CPT/HCPCS: 36415; 36600; 70450; 71045; 72100; 76000; 80048; 80053; 81001; 82805; 82962; 83735; 83880; 84145; 85014; 85018; 85025; 94640; 94760; 97116; 97161; 97165; 97530; C1713; C1831; C9290; J0171; J0690; J0696; J1100; J1170; J1815; J2250; J2405; J2704; J3010; J7613